=== PATIENT | female | born 1970 | race Caucasian/White ===

== ENCOUNTER 2021-04-28 19:31 | Emergency (ER) | payer OTHER, SELFPAY ==
[2021-04-28 19:44] VITALS: BP 142/91; PULSE 75; RESP 18; TEMP 36.8; O2SAT 99; BMI 29.9
--- NOTE | 2021-04-28 20:10 | ED.NAVMDI ---
HPI - Nausea/Vomiting/Diarrhea General Chief complaint: Abdominal Pain Stated complaint: vomiting Time Seen by Provider: 04/28/21 20:10 Source: patient Mode of arrival: ambulatory Limitations: no limitations History of Present Illness HPI Narrative: Patient been complaining of abdominal cramps nausea vomiting diarrhea since yesterday evening vomited about 4 times and had diarrhea about 7-8 times last few bowel movements had only bright red blood patient does have history of hemorrhoids had colonoscopy last year which was negative. No fever no chills denies any recent travel or sea food intake no fever or chills no use of antibiotics Related Data Home Medications Medication Instructions Recorded Confirmed oxycodone-acetaminophen 5 mg-325 1 tab PO Q6H PRN 07/09/20 10/08/20 mg tablet Previous Rx's Medication Instructions Recorded cetirizine 10 mg tablet (Zyrtec) 10 mg PO DAILY PRN 20 Days #20 tab 07/09/20 triamcinolone acetonide 0.1 % 1 appl TOPICAL BID 15 Days #15 g 07/09/20 topical cream ubrogepant 50 mg tablet (Ubrelvy) 50 mg PO ONCE PRN 30 Days #10 tab 10/08/20 topiramate 25 mg tablet 50 mg PO BEDTIME #180 tab 03/10/21 ondansetron 4 mg disintegrating 4 mg PO Q8H PRN #9 tab 03/21/21 tablet hydrocortisone acetate 25 mg 25 mg ID BID #12 ea 04/28/21 rectal suppository (Anusol-HC) Allergies Allergy/AdvReac Type Severity Reaction Status Date / Time No Known Allergies Allergy Verified 04/28/21 19:44 [No Known Allergies*] Review of Systems Review of Systems: Yes all other systems are reviewed and are negative [facility] Past Medical History Medical History Elevated LFTs Hypertriglyceridemia Migraine Normal colonoscopy (~11/21/19) Overweight (BMI 25.0-29.9) Rash Smoker Surgical History History of D&C Family History Family History Father No problems noted. Mother Hypertension Dementia Social History Social History Alcohol intake: current Alcohol intake frequency: holidays/special occasions only Advance Directives: No Advance Directives Information Provided: Yes Patient : No Physical Exam Vital Signs: Vital Signs: Last Vital Signs Temp 97.6 F 04/28/21 20:12 Pulse 76 04/28/21 20:12 Resp 14 04/28/21 20:12 BP 169/101 H 04/28/21 20:12 Pulse Ox 99 04/28/21 20:12 Body Mass Index 29.9 Appearance: Alert. Oriented X3. No acute distress. Eyes: No pallor or icterus ENT: Pharynx normal. Oral Mucosa moist Neck: Normal inspection. Neck supple. CVS: Normal heart rate and rhythm. Pulses normal. Respiratory: No respiratory distress. Equal air entry bilateral, no wheezing/rales/rhonchi Abdomen: Soft and nontender. Bowel sounds are present, no mass palpable, no CVA tenderness Skin: Skin warm and dry. Normal skin color. Normal skin turgor. Extremities: No lower extremity edema. No calf tenderness Neuro: Oriented X 3. No motor deficit. MDM - Nausea/Vomiting/Diarrhea MDM Narrative Medical decision making narrative: Patient' with history of hemorrhoids status post surgery comes with nausea vomiting diarrhea which is getting better labs are stable discharge patient home Lab Data Attestation: I reviewed the patient's lab results. Result diagrams: 04/28/21 21:36 04/28/21 21:36 Labs: Lab Results 04/28/21 04/28/21 04/28/21 Range/Units 20:18 21:36 21:36 WBC 8.8 (4.8-10.8) X10*3/uL RBC 3.63 L (4.20-5.50) X10*6/uL Hgb 12.6 (12.0-16.0) g/dl Hct 36.6 L (37.0-47.0) % MCV 100.8 H (80.0-98.0) fL MCH 34.7 H (27.0-33.0) pg MCHC 34.4 (31.0-35.0) g/dl RDW 12.4 (11.0-16.0) % Plt Count 214 (160-400) X10*3/uL MPV 10.2 (9.4-12.3) fL Immature Gran % (Auto) 0.2 (0.0-0.4) % Neut % (Auto) 72.6 (45-73) % Lymph % (Auto) 18.6 L (20-40) % [place] % (Auto) 7.5 (2-11) % Eos % (Auto) 0.9 (0-4) % Baso % (Auto) 0.2 (0-2) % Lymph # (Auto) 1.6 (1.2-4.9) X10*3/uL [place] # (Auto) 0.7 (0.1-1.2) X10*3/uL Eos # (Auto) 0.1 (0.0-0.4) X10*3/uL Baso # (Auto) 0.0 (0.0-0.2) X10*3/uL Abs Immat Gran (auto) 0.02 (0.00-0.03) X10*3/uL Absolute Neuts (auto) 6.4 (2.0-8.3) x10*3/uL Absolute Nucleated RBC 0.000 (0.0-0.012) X10*3/uL Nucleated RBC % (auto) 0.0 (0.0-0.2) /100WBC Sodium 138 (135-145) mmol/L Potassium 3.6 (3.3-5.1) mmol/L Chloride 104 (96-108) mmol/L Carbon Dioxide 27 (22-29) mmol/L Anion Gap 11 L (12-20) BUN 12 (9-16) mg/dL Creatinine 0.63 (0.5-1.4) mg/dL Estim Creat Clear Calc 114.0 Estimated GFR > 60 Random Glucose 93 (60-115) mg/dL Calcium 8.8 (8.4-10.2) mg/dL Total Bilirubin 0.6 (0.0-1.0) mg/dL AST 20 (5-31) U/L ALT 24 (0-31) U/L Alkaline Phosphatase 59 (39-117) U/L Total Protein 5.2 L (6.5-8.0) g/dL Albumin 3.5 (3.5-5.0) g/dL Lipase 87 H (8-78) U/L Urine Color YELLOW Urine Appearance CLEAR Urine pH 6.0 (5.0-8.0) Ur Specific [place] <= 1.005 (1.005-1.025) Urine Protein NEG (NEG-TRACE) MG/DL Urine Glucose (UA) NEG (NEG) MG/DL Urine Ketones 5 (NEG) MG/DL Urine Blood 1+ H (NEG) Urine Nitrite NEG (NEG) Ur Leukocyte Esterase NEG (NEG) Urine RBC 0-2 (0) /HPF Urine WBC 0 (0-4) /HPF Ur Squamous Epith Cells 1+ /LPF Urine Bacteria TRACE /LPF Discharge Plan Discharge Clinical Impression: Gastroenteritis, Bleeding hemorrhoid Patient Disposition: Home, Self-Care Instructions: Hemorrhoids (ED), Enteritis (ED) Additional Instructions: Drink plenty of fluids Avoid straining Suppository for hemorrhoids Follow-up with surgeon if bleeding continues Prescriptions: New hydrocortisone acetate [Anusol-HC] 25 mg suppository 25 mg ID BID Qty: 12 RF: 0 No Action topiramate 25 mg tablet 50 mg PO BEDTIME Qty: 180 RF: 1 ondansetron 4 mg tablet,disintegrating 4 mg PO Q8H PRN (Reason: for nausea/vomiting) Qty: 9 RF: 6 Ubrelvy 50 mg tablet 50 mg PO ONCE PRN (Reason: migraine headache) 30 Days Qty: 10 RF: 5 oxycodone-acetaminophen 5-325 mg tablet 1 tab PO Q6H PRN (Reason: pain) RF: 0 triamcinolone acetonide 0.1 % cream 1 appl topical BID 15 Days Qty: 15 RF: 0 cetirizine [Zyrtec] 10 mg tablet 10 mg PO DAILY PRN (Reason: allergy symptoms) 20 Days Qty: 20 RF: 0
[2021-04-28 20:12] VITALS: BP 169/101; PULSE 76; RESP 14; TEMP 36.4; O2SAT 99
[2021-04-28 20:28] LABS: Appearance Urine CLEAR; Color Urine YELLOW; Glucose Urine UA NEG (NEG); Leukocyte Esterase Urine NEG (NEG); Nitrite Urine NEG (NEG); Specific Gravity - Urine <= 1.005 (1.005-1.025); Urine Blood 1+ (NEG); Urine Ketones 5 MG/DL (NEG); Urine Protein NEG (NEG-TRACE)
[2021-04-28 20:37] LABS: Bacteria Urine TRACE /LPF; RBC Urine 0-2 /HPF (0); Squamous Epithelial Cell Urine 1+ /LPF; WBC Urine 0 /HPF (0-4)
[2021-04-28] MEDS: Ondansetron ODT 4 MG TAB.RAPDIS TRANSLINGU (20:42)
[2021-04-28] MEDS: Dicyclomine HCl 10 MG CAPSULE 20 MG PO (20:42)
[2021-04-28 21:51] LABS: MANUAL DIFF FLAG NO
[2021-04-28 21:54] LABS: Basophils Percent Auto 0.2 % (0-2); Eosinophils Absolute Auto 0.1 X10*3/uL (0.0-0.4); Eosinophils Percent Auto 0.9 % (0-4); Hematocrit 36.6 % (37.0-47.0); Hemoglobin 12.6 g/dl (12.0-16.0); Imm Gran Abs Auto 0.02 X10*3/uL (0.00-0.03); Imm Gran Pct Auto 0.2 % (0.0-0.4); Lymphocytes Absolute Auto 1.6 X10*3/uL (1.2-4.9); Lymphocytes Percent Auto 18.6 % (20-40); Mean Corpuscular HGB Conc 34.4 g/dl (31.0-35.0); Mean Corpuscular Hemoglobin 34.7 pg (27.0-33.0); Mean Corpuscular Volume 100.8 fL (80.0-98.0); Mean Platelet Volume 10.2 fL (9.4-12.3); Monocytes Absolute Auto 0.7 X10*3/uL (0.1-1.2); Monocytes Percent Auto 7.5 % (2-11); Neutrophils Absolute Auto 6.4 x10*3/uL (2.0-8.3); Neutrophils Percent Auto 72.6 % (45-73); Platelet Count 214 X10*3/uL (160-400); Red Blood Count 3.63 X10*6/uL (4.20-5.50); Red Cell Distribution Width 12.4 % (11.0-16.0); White Blood Count 8.8 X10*3/uL (4.8-10.8)
[2021-04-28 22:10] LABS: Alanine Aminotransferase 24 U/L (0-31); Albumin Level 3.5 g/dL (3.5-5.0); Alkaline Phosphatase 59 U/L (39-117); Anion Gap 11 (12-20); Aspartate Amino Transferase 20 U/L (5-31); Bilirubin Total 0.6 mg/dL (0.0-1.0); Blood Urea Nitrogen 12 mg/dL (9-16); Calcium 8.8 mg/dL (8.4-10.2); Carbon Dioxide 27 mmol/L (22-29); Chloride 104 mmol/L (96-108); Estimated Glomerular Filt Rate > 60; Glucose Random 93 mg/dL (60-115); Lipase 87 U/L (8-78); Potassium 3.6 mmol/L (3.3-5.1); Sodium 138 mmol/L (135-145); Total Protein 5.2 g/dL (6.5-8.0)
== END 2021-04-28 22:23 | disposition home or self-care (01) ==
PROVIDERS: Emergency Provider Internal Medicine; PCP Internal Medicine
DX: K52.9 Noninfective gastroenteritis and colitis, unspecified (principal); K64.9 Unspecified hemorrhoids
CPT/HCPCS: 36415; 80053; 81001; 83690; 85025; 99283

== ENCOUNTER 2021-05-30 06:07 | Outpatient (REF) | payer OTHER, SELFPAY ==
[2021-05-30 06:23] LABS: MANUAL DIFF FLAG NO
[2021-05-30 07:19] LABS: Basophils Percent Auto 0.6 % (0-2); Eosinophils Absolute Auto 0.1 X10*3/uL (0.0-0.4); Eosinophils Percent Auto 2.1 % (0-4); Hemoglobin 13.2 g/dl (12.0-16.0); Imm Gran Abs Auto 0.01 X10*3/uL (0.00-0.03); Imm Gran Pct Auto 0.2 % (0.0-0.4); Lymphocytes Absolute Auto 2.4 X10*3/uL (1.2-4.9); Lymphocytes Percent Auto 38.4 % (20-40); Mean Corpuscular HGB Conc 33.8 g/dl (31.0-35.0); Mean Corpuscular Hemoglobin 33.9 pg (27.0-33.0); Mean Corpuscular Volume 100.3 fL (80.0-98.0); Mean Platelet Volume 10.5 fL (9.4-12.3); Monocytes Absolute Auto 0.5 X10*3/uL (0.1-1.2); Monocytes Percent Auto 7.5 % (2-11); Neutrophils Absolute Auto 3.2 x10*3/uL (2.0-8.3); Neutrophils Percent Auto 51.2 % (45-73); Platelet Count 270 X10*3/uL (160-400); Red Blood Count 3.89 X10*6/uL (4.20-5.50); Red Cell Distribution Width 12.1 % (11.0-16.0); White Blood Count 6.2 X10*3/uL (4.8-10.8)
[2021-05-30 07:43] LABS: Alanine Aminotransferase 41 U/L (0-31); Albumin Level 3.7 g/dL (3.5-5.0); Alkaline Phosphatase 87 U/L (39-117); Anion Gap 12 (12-20); Aspartate Amino Transferase 38 U/L (5-31); Bilirubin Total 0.3 mg/dL (0.0-1.0); Blood Urea Nitrogen 21 mg/dL (9-16); Carbon Dioxide 25 mmol/L (22-29); Chloride 107 mmol/L (96-108); Cholesterol 201 mg/dL; Estimated Glomerular Filt Rate > 60; Glucose Fasting 87 mg/dL (60-99); HDL Cholesterol 46 mg/dL; LDL Cholesterol Calculated 116 mg/dl; Potassium 4.5 mmol/L (3.3-5.1); Sodium 139 mmol/L (135-145); Total Protein 5.8 g/dL (6.5-8.0); Triglycerides 195 mg/dL
[2021-05-30 08:03] LABS: TSH reflex Free T4 1.83 uIU/mL (0.32-4.0)
[2021-05-30 08:38] LABS: Appearance Urine CLEAR; Color Urine YELLOW; Glucose Urine UA NEG (NEG); Leukocyte Esterase Urine NEG (NEG); Nitrite Urine NEG (NEG); UACC Culture Trigger NO; Urine Blood TRACE (NEG); Urine Ketones NEG (NEG); Urine Protein NEG (NEG-TRACE)
[2021-05-30 08:49] LABS: Bacteria Urine TRACE /LPF; Squamous Epithelial Cell Urine 1+ /LPF
[2021-05-30 08:50] LABS: RBC Urine 0 /HPF (0); WBC Urine 0-2 /HPF (0-4)
== END 2021-05-30 06:08 | disposition home or self-care (01) ==
LOC: HO.LAB 06:07
PROVIDERS: PCP Internal Medicine; Visit Provider Internal Medicine
DX: Z00.00 Encounter for general adult medical examination without abnormal findings (principal)
CPT/HCPCS: 36415; 80053; 80061; 81001; 84443; 85025

== ENCOUNTER 2021-07-01 11:42 | Outpatient (REF) | payer OTHER, SELFPAY ==
--- NOTE | ~2021-07-01 | XR_ITS ---
EXAMINATION: LEFT FEMUR AND LEFT KNEE X-RAY CLINICAL INFORMATION: Pain COMPARISON: None TECHNIQUE: 2 views of the left femur and 4 views of the left knee FINDINGS: Left femur: Bone alignment is normal. No fracture or dislocation is seen. Joint spaces are normal. The soft tissues are normal. Left knee: Bone alignment is normal. No fracture or dislocation is seen. Joint spaces are normal. There is no joint effusion. XR/XR femur LT 2V IMPRESSION: Unremarkable exam.
--- NOTE | ~2021-07-01 | XR_ITS ---
EXAMINATION: LEFT FEMUR AND LEFT KNEE X-RAY CLINICAL INFORMATION: Pain COMPARISON: None TECHNIQUE: 2 views of the left femur and 4 views of the left knee FINDINGS: Left femur: Bone alignment is normal. No fracture or dislocation is seen. Joint spaces are normal. The soft tissues are normal. Left knee: Bone alignment is normal. No fracture or dislocation is seen. Joint spaces are normal. There is no joint effusion. XR/XR knee LT 4V IMPRESSION: Unremarkable exam.
== END 2021-07-01 11:43 | disposition home or self-care (01) ==
LOC: HO.XRAY 11:42
PROVIDERS: PCP Internal Medicine; Visit Provider Nurse Practitioner Family
DX: M25.562 Pain in left knee (principal); M79.605 Pain in left leg
CPT/HCPCS: 73552; 73564

== ENCOUNTER 2021-12-03 08:51 | Outpatient (REF) | payer OTHER, SELFPAY ==
[2021-12-03 11:38] LABS: Alanine Aminotransferase 41 U/L (0-31); Albumin Level 4.2 g/dL (3.5-5.0); Anion Gap 15 (12-20); Aspartate Amino Transferase 34 U/L (5-31); Bilirubin Total 0.6 mg/dL (0.0-1.0); Blood Urea Nitrogen 11 mg/dL (9-16); Calcium 9.1 mg/dL (8.4-10.2); Carbon Dioxide 24 mmol/L (22-29); Chloride 103 mmol/L (96-108); Cholesterol 206 mg/dL; Estimated Glomerular Filt Rate > 60; Glucose Fasting 91 mg/dL (60-99); HDL Cholesterol 64 mg/dL; LDL Cholesterol Calculated 128 mg/dl; Potassium 3.9 mmol/L (3.3-5.1); Sodium 138 mmol/L (135-145); Total Protein 6.5 g/dL (6.5-8.0); Triglycerides 71 mg/dL
[2021-12-03 11:46] LABS: Alkaline Phosphatase 81 U/L (39-117)
[2021-12-03 11:54] LABS: Vitamin D 25-OH Total 39.5 ng/mL (>30)
== END 2021-12-03 08:52 | disposition home or self-care (01) ==
LOC: HO.HMGCLDS 08:51
PROVIDERS: PCP Internal Medicine; Visit Provider Internal Medicine
DX: E78.00 Pure hypercholesterolemia, unspecified (principal); E55.9 Vitamin D deficiency, unspecified
CPT/HCPCS: 36415; 80053; 80061; 82306

== ENCOUNTER 2022-06-13 07:44 | Outpatient (REF) | payer OTHER, SELFPAY ==
[2022-06-13 11:11] LABS: MANUAL DIFF FLAG NO
[2022-06-13 11:21] LABS: Appearance Urine Clear; Color Urine Yellow; Glucose Urine UA Negative (Negative); Leukocyte Esterase Urine Negative (Negative); Nitrite Urine Negative (Negative); Specific Gravity - Urine 1.015 (1.005-1.025); Urine Blood Negative (Negative); Urine Ketones Negative (Negative); Urine Protein Negative (Neg-Trace)
[2022-06-13 11:27] LABS: Basophils Percent Auto 0.5 % (0-2); Eosinophils Absolute Auto 0.1 X10*3/uL (0.0-0.4); Eosinophils Percent Auto 1.4 % (0-4); Hematocrit 39.8 % (37.0-47.0); Hemoglobin 13.5 g/dl (12.0-16.0); Imm Gran Abs Auto 0.02 X10*3/uL (0.00-0.03); Imm Gran Pct Auto 0.3 % (0.0-0.4); Lymphocytes Absolute Auto 1.9 X10*3/uL (1.2-4.9); Lymphocytes Percent Auto 32.8 % (20-40); Mean Corpuscular HGB Conc 33.9 g/dl (31.0-35.0); Mean Corpuscular Hemoglobin 34.7 pg (27.0-33.0); Mean Corpuscular Volume 102.3 fL (80.0-98.0); Mean Platelet Volume 10.8 fL (9.4-12.3); Monocytes Absolute Auto 0.5 X10*3/uL (0.1-1.2); Monocytes Percent Auto 8.2 % (2-11); Neutrophils Absolute Auto 3.3 x10*3/uL (2.0-8.3); Neutrophils Percent Auto 56.8 % (45-73); Platelet Count 237 X10*3/uL (160-400); Red Blood Count 3.89 X10*6/uL (4.20-5.50); Red Cell Distribution Width 12.3 % (11.0-16.0); White Blood Count 5.7 X10*3/uL (4.8-10.8)
[2022-06-13 12:50] LABS: Alanine Aminotransferase 37 U/L (0-31); Albumin Level 4.1 g/dL (3.5-5.0); Alkaline Phosphatase 85 U/L (39-117); Anion Gap 12 (12-20); Aspartate Amino Transferase 32 U/L (5-31); Bilirubin Total 0.6 mg/dL (0.0-1.0); Blood Urea Nitrogen 18 mg/dL (9-16); Calcium 9.2 mg/dL (8.4-10.2); Carbon Dioxide 28 mmol/L (22-29); Chloride 103 mmol/L (96-108); Cholesterol 217 mg/dL; Estimated Glomerular Filt Rate > 60; Glucose Fasting 91 mg/dL (60-99); HDL Cholesterol 75 mg/dL; LDL Cholesterol Calculated 121 mg/dl; Potassium 4.2 mmol/L (3.3-5.1); Sodium 139 mmol/L (135-145); Total Protein 6.2 g/dL (6.5-8.0); Triglycerides 106 mg/dL; Vitamin D 25-OH Total 50.8 ng/mL (>30)
== END 2022-06-13 07:45 | disposition home or self-care (01) ==
LOC: HO.HMGCLDS 07:44
PROVIDERS: PCP Internal Medicine; Visit Provider Internal Medicine
DX: I10 Essential (primary) hypertension (principal); E78.00 Pure hypercholesterolemia, unspecified; E55.9 Vitamin D deficiency, unspecified
CPT/HCPCS: 36415; 80053; 80061; 81003; 82306; 84443; 85025

== ENCOUNTER 2022-12-11 07:44 | Outpatient (REF) | payer OTHER, SELFPAY ==
[2022-12-11 11:11] LABS: Appearance Urine Clear; Color Urine Yellow; Glucose Urine UA Negative (Negative); Leukocyte Esterase Urine Trace (Negative); Nitrite Urine Negative (Negative); PH 5.5 (5.0-9.0); UMIC TRIGGER UACC YES; Urine Blood Negative (Negative); Urine Ketones Negative (Negative); Urine Protein Negative (Neg-Trace)
[2022-12-11 11:14] LABS: Bacteria Urine None Seen (None Seen); Hyaline Casts Urine 0-2 /LPF (0-2); RBC Urine 0-2 /HPF (0-2); Squamous Epithelial Cell Urine 0-2 /HPF (0-2); WBC Urine 0-5 /HPF (0-5)
[2022-12-11 11:19] LABS: MANUAL DIFF FLAG NO
[2022-12-11 11:38] LABS: Basophils Percent Auto 0.6 % (0-2); Eosinophils Absolute Auto 0.1 X10*3/uL (0.0-0.4); Eosinophils Percent Auto 0.7 % (0-4); Hematocrit 41.6 % (37.0-47.0); Hemoglobin 14.1 g/dl (12.0-16.0); Imm Gran Abs Auto 0.03 X10*3/uL (0.00-0.03); Imm Gran Pct Auto 0.4 % (0.0-0.4); Lymphocytes Absolute Auto 1.8 X10*3/uL (1.2-4.9); Lymphocytes Percent Auto 26.5 % (20-40); Mean Corpuscular HGB Conc 33.9 g/dl (31.0-35.0); Mean Corpuscular Hemoglobin 33.9 pg (27.0-33.0); Mean Platelet Volume 10.1 fL (9.4-12.3); Monocytes Absolute Auto 0.5 X10*3/uL (0.1-1.2); Neutrophils Absolute Auto 4.4 x10*3/uL (2.0-8.3); Neutrophils Percent Auto 64.8 % (45-73); Platelet Count 331 X10*3/uL (160-400); Red Blood Count 4.16 X10*6/uL (4.20-5.50); Red Cell Distribution Width 12.9 % (11.0-16.0); White Blood Count 6.8 X10*3/uL (4.8-10.8)
[2022-12-11 12:42] LABS: Alanine Aminotransferase 69 U/L (0-31); Alkaline Phosphatase 99 U/L (39-117); Anion Gap 13 (12-20); Aspartate Amino Transferase 41 U/L (5-31); Bilirubin Total 0.5 mg/dL (0.0-1.0); Blood Urea Nitrogen 21 mg/dL (9-16); Calcium 9.5 mg/dL (8.4-10.2); Carbon Dioxide 27 mmol/L (22-29); Chloride 104 mmol/L (96-108); Cholesterol 184 mg/dL; Estimated Glomerular Filt Rate > 60; Glucose Fasting 91 mg/dL (60-99); HDL Cholesterol 61 mg/dL; LDL Cholesterol Calculated 110 mg/dl; Potassium 4.2 mmol/L (3.3-5.1); Sodium 140 mmol/L (135-145); Total Protein 6.6 g/dL (6.5-8.0); Triglycerides 65 mg/dL
[2022-12-11 13:01] LABS: TSH reflex Free T4 1.45 uIU/mL (0.32-4.0); Vitamin D 25-OH Total 95.9 ng/mL (>30)
== END 2022-12-11 07:45 | disposition home or self-care (01) ==
LOC: HO.HMGCLDS 07:44
PROVIDERS: PCP Internal Medicine; Visit Provider Internal Medicine
DX: I10 Essential (primary) hypertension (principal); E55.9 Vitamin D deficiency, unspecified; E78.00 Pure hypercholesterolemia, unspecified
CPT/HCPCS: 36415; 80053; 80061; 81001; 82306; 84443; 85025

== ENCOUNTER 2023-01-03 11:04 | Outpatient (REF) | payer OTHER, SELFPAY ==
--- NOTE | ~2023-01-03 | US_ITS ---
EXAMINATION: US SOFT TISSUE HEAD/NECK CLINICAL INFORMATION: Unspecified cyst of jaw. Palpable and tender cyst on left side of the face/maxillary area. Cyst has been present for years but is now becoming painful. Rule out salivary gland cyst versus mucous cyst versus lymph node. COMPARISON: None available. TECHNIQUE: Linear transducer grayscale and color Doppler examination of the left face/maxillary area between the edge of lip and ear with right side for comparison. FINDINGS: The painful area/lump indicated by the patient corresponds to a slightly more prominent parotid (accessory) gland on the left compared to the right. Difference in size of doubtful clinical significance. No cystic structures or obvious abnormalities are seen in the cheek. US/US soft tiss head and/or neck IMPRESSION: The painful area/lump indicated by the patient corresponds to a slightly more prominent parotid (accessory) gland on the left compared to the right. Difference in size is of doubtful clinical significance.
== END 2023-01-03 11:05 | disposition home or self-care (01) ==
LOC: HO.HMGCX 11:04
PROVIDERS: PCP Internal Medicine; Visit Provider Internal Medicine
DX: M27.40 Unspecified cyst of jaw (principal)
CPT/HCPCS: 76536

== ENCOUNTER 2023-10-26 07:56 | Outpatient (REF) | payer OTHER, SELFPAY ==
[2023-10-26 10:26] LABS: MANUAL DIFF FLAG NO
[2023-10-26 10:35] LABS: Appearance Urine Clear; Color Urine Yellow; Glucose Urine UA Negative (Negative); Leukocyte Esterase Urine Negative (Negative); Nitrite Urine Negative (Negative); PH 6.5 (5.0-9.0); Specific Gravity - Urine <= 1.005 (1.005-1.025); Urine Blood Negative (Negative); Urine Ketones Negative (Negative); Urine Protein Negative (Neg-Trace)
[2023-10-26 10:52] LABS: Basophils Percent Auto 0.7 % (0-2); Eosinophils Absolute Auto 0.1 X10*3/uL (0.0-0.4); Eosinophils Percent Auto 1.1 % (0-4); Hematocrit 39.3 % (37.0-47.0); Hemoglobin 13.5 g/dl (12.0-16.0); Imm Gran Abs Auto 0.01 X10*3/uL (0.00-0.03); Imm Gran Pct Auto 0.2 % (0.0-0.4); Lymphocytes Absolute Auto 1.6 X10*3/uL (1.2-4.9); Lymphocytes Percent Auto 29.2 % (20-40); Mean Corpuscular HGB Conc 34.4 g/dl (31.0-35.0); Mean Corpuscular Hemoglobin 34.3 pg (27.0-33.0); Mean Corpuscular Volume 99.7 fL (80.0-98.0); Mean Platelet Volume 10.7 fL (9.4-12.3); Monocytes Absolute Auto 0.4 X10*3/uL (0.1-1.2); Monocytes Percent Auto 7.1 % (2-11); Neutrophils Absolute Auto 3.3 x10*3/uL (2.0-8.3); Neutrophils Percent Auto 61.7 % (45-73); Platelet Count 236 X10*3/uL (160-400); Red Blood Count 3.94 X10*6/uL (4.20-5.50); Red Cell Distribution Width 12.7 % (11.0-16.0); White Blood Count 5.3 X10*3/uL (4.8-10.8)
[2023-10-26 11:18] LABS: Alanine Aminotransferase 31 U/L (0-31); Albumin Level 4.2 g/dL (3.5-5.0); Alkaline Phosphatase 101 U/L (39-117); Anion Gap 13 (12-20); Aspartate Amino Transferase 28 U/L (5-31); Bilirubin Total 0.5 mg/dL (0.0-1.0); Blood Urea Nitrogen 17 mg/dL (9-16); Calcium 9.6 mg/dL (8.4-10.2); Carbon Dioxide 26 mmol/L (22-29); Chloride 106 mmol/L (96-108); Cholesterol 196 mg/dL (<200); Estimated Glomerular Filt Rate > 60; Glucose Fasting 94 mg/dL (60-99); HDL Cholesterol 66 mg/dL (>40); LDL Cholesterol Calculated 116 mg/dL (<100); Sodium 141 mmol/L (135-145); Total Protein 6.7 g/dL (6.5-8.0); Triglycerides 70 mg/dL (<150)
[2023-10-26 11:20] LABS: TSH reflex Free T4 1.54 uIU/mL (0.32-4.0); Vitamin D 25-OH Total 69.5 ng/mL (>30)
== END 2023-10-26 07:57 | disposition home or self-care (01) ==
LOC: HO.HMGCLDS 07:56
PROVIDERS: PCP Internal Medicine; Visit Provider Internal Medicine
DX: E78.00 Pure hypercholesterolemia, unspecified (principal); R30.0 Dysuria; E55.9 Vitamin D deficiency, unspecified; I10 Essential (primary) hypertension
CPT/HCPCS: 36415; 80053; 80061; 81003; 82306; 84443; 85025

== ENCOUNTER 2023-10-30 16:41 | Outpatient (AMB) | payer OTHER, SELFPAY ==
[2023-10-30 16:49] VITALS: BP 142/96; PULSE 92; O2SAT 96; BMI 30.4
--- NOTE | 2023-10-30 16:49 | MHC.PC.OV ---
Vital Signs 10/30/23 16:49 Height 5 ft 5 in Weight 183 lb BMI 30.4 BP 142/96 H Blood Pressure Location Lt brachial Position Sitting Pulse 92 Pulse Source Pulse Oximeter Pulse Oximetry (%) 96 Oxygen Delivery Method Room Air Intake Visit Reasons: PE Anthropology Faculty Member Required: No Military Professional: Not Required per policy Accompanied by: Self / Same As Patient Allergies No Known Allergies [No Known Allergies*] Allergy (Verified 10/30/23 17:40) Medication List - Last Reconciled 10/30/23 by Sami Peterson MD cetirizine (Zyrtec) 10 mg PO DAILY PRN 20 days diclofenac sodium 1% (Voltaren Arthritis Pain) 2 grams topical QID hydrocortisone acetate (Anusol-HC) 25 mg NM BID metronidazole 0.75% 1 appl topical DAILY nabumetone 500 mg PO BID ondansetron 4 mg PO Q8H PRN oxycodone-acetaminophen 5-325 mg (Percocet) 1 tab PO Q6H PRN 28 days topiramate 50 mg (2 x 25 mg) PO BEDTIME triamcinolone acetonide 0.1% 1 appl topical BID 15 days Tobacco use date assessed: 10/30/23 Dental Screening Dental Screen Date: 10/30/23 Did you have a dental visit in the last 12 months?: Yes Did you have a dental problem in the last 6 months where you did not have access to dental care?: No Was dental information given to patient?: Patient has dentist HPI PE HPI Details Patient comes in today for her annual physical examination States that she is still under a lot of stress due to her parents' declining health and mental conditions and is struggling with deciding whether to sign up her father for hospice States that she feels okay otherwise except for increasing right shoulder pain Recalls injuring her right shoulder many years ago and at one point she was advised to undergo arthroscopic surgery by orthopedics but she did not go ahead with the procedure due to some concerns States that her right shoulder has been frequently bothering her since and notes that she has been experiencing increased pain in her right shoulder lately States that her headaches have been well controlled lately on her current Rx; denies any dizziness She denies any chest pains, no shortness of breath No nausea/ vomiting, no abdominal pain No change in bowel habits noted She denies any acute urinary symptoms Had her follow-up labs done a few days ago - to discuss her results Her annual mammogram was last done just this past month at [facility] in [place] She last had her gynecology exam and pap smear done earlier this year in June or July 2023 also in [place] but states that 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 Bruce - was recommended to get a repeat colonoscopy in 10 yrs (2029) [facility] Medical History (Updated 10/31/23 @ 05:37 by Sami Peterson MD) Obesity (BMI 30-39.9) Rash Elevated LFTs Hypertriglyceridemia Overweight (BMI 25.0-29.9) Smoker Normal colonoscopy (~11/21/19) Migraine Surgical History History of colonoscopy (~11/21/19) History of D&C Family History Father No problems noted. Mother Hypertension Dementia Other Mental health problem Social History Housing: House Alcohol intake: current Alcohol intake frequency: holidays/special occasions only Patient Tobacco Use Status: Current someday Tobacco user e-Cigarette/Vaping Use: Never Used Second Hand Smoke Exposure: Yes service: No Current occupational status: employed Cognitive needs: No Hearing needs: No Vision needs: No Questionnaire PHQ-9 Over the last 2 weeks, how often have you been bothered by any of the following problems? 1. Little interest or pleasure in doing things: not at all 2. Feeling down, depressed, or hopeless: not at all 3. Trouble falling or staying asleep, or sleeping too much: not at all 4. Feeling tired or having little energy: not at all 5. Poor appetite or overeating: not at all 6. Feeling bad about yourself - or that you are a failure or have let yourself or your family down: not at all 7. Trouble concentrating on things, such as reading the newspaper or watching television: not at all 8. Moving or speaking so slowly that other people could have noticed. Or the opposite - being so fidgety or restless that you have been moving around a lot more than usual: not at all 9. Thoughts that you would be better off or of hurting yourself in some way: not at all Total score: 0 Depression Screening Interpretation: Negative Depression Screening Done: Yes 30637 - PHQ-9 Billing: Yes Source: Developed by Drs. Jabari Antonio, Barbara Lim, Parish Jeffrey and colleagues, with an educational richie from [employer]. Thrive Questionnaire Date Thrive assessed: 10/30/23 I am a: Patient What is your living situation today?: I have a steady place to live Within the past 12 months, did the food you bought not last and you didn't have the money to get more?: Never true Within the past 12 months, did you worry whether your food would run out before you got money to buy more?: Never true Do you have trouble paying for medicines?: No Do you have trouble getting transportation to medical appointments?: No Do you have trouble paying your heating and electricity bill?: No Do you have trouble taking care of your child, family member or friend?: No Do you have trouble with day-to-day activities such as bathing, preparing meals, shopping, managing finances, etc.?: No Are you currently unemployed and looking for a job?: No Are you interested in more education?: No Please select the resources that you would like help with: None Currently or been in a relationship where the following occur: no concerns reported THRIVE Score: 0 AUDIT C Alcohol Use Questionnaire (AUDIT-C) 1. How often do you have a drink containing alcohol?: Monthly or less 2. How many drinks containing alcohol do you have on a typical day when you are drinking?: 1 or 2 3. How often do you have six or more drinks on one occasion?: Never Total Score: 1 Score Reviewed/Action Taken: Yes KARYN-7 AMB Questionnaire KARYN-7 Date KARYN - 7 assessed: 10/30/23 Feeling nervous, anxious, or on edge: 0 = Not at all Not being able to stop or control worryin = Not at all Worrying too much about different things: 0 = Not at all Trouble relaxin = Not at all Being so restless that it is hard to sit still: 0 = Not at all Becoming easily annoyed or irritable: 0 = Not at all Feeling afraid as if something awful might happen: 0 = Not at all Total KARYN-7 score (0-4 normal; 5-9 mild; 10-14 moderate; 15-21 severe): 0 Source: Developed by Drs. Jabari Antonio, Barbara Lim, Parish Jeffrey and colleagues, with an educational richie from [employer]. Review of Systems Const Denies chills, Denies fatigue, Denies fever(s), Denies headache(s) and Denies malaise Eyes Denies blurry vision, Denies change in vision, Denies irritation and Denies itchy eyes ENT Denies dysphagia, Denies dizziness, Denies otalgia, Denies headache(s), Denies nasal congestion, Denies neck pain, Denies odynophagia, Denies sinus pain and Denies sore throat Card Denies chest pain, Denies rapid heart rate, Denies irregular heart rhythm, Denies palpitations and Denies dyspnea Resp Denies chest congestion, Denies cough, Denies dyspnea and Denies wheezing GI Denies abdominal pain, Denies bloating, Denies constipation, Denies dysphagia, Denies heartburn, Denies diarrhea, Denies nausea, Denies odynophagia and Denies vomiting Denies hematuria, Denies urinary frequency, Denies dysuria, Denies urinary incontinence and Denies urinary urgency Musc Denies back pain, Reports arthralgias (in the right shoulder - increasing lately), Denies joint swelling, Denies muscle weakness and Denies neck pain Skin/Breast Denies breast pain, Denies breast mass, Denies change in pigmentation, Denies lesions, Denies rash and Denies unusual bruising Neuro Denies dizziness, Denies headache(s) and Denies paresthesias Psych Reports anxiety and Denies depression Endo Denies fatigue and Denies palpitations Harsha/Lymph Denies easy bruising Aller/Immun Denies itchy eyes and Denies wheezing Physical exam (Primary Care) Vital Signs: Last Vital Signs Pulse 92 10/30/23 16:49 BP 142/96 H 10/30/23 16:49 Pulse Ox 96 10/30/23 16:49 Oxygen Delivery Method Room Air 10/30/23 16:49 BMI result Body Mass Index 30.4 Tobacco/Smoking Status: Tobacco use Status Tobacco use date assessed 10/30/23 10/30/23 16:50 Patient Tobacco Use Status Current someday Tobacco 10/30/23 16:50 e-Cigarette/Vaping Use Never Used 10/30/23 16:50 PHQ-9: PHQ-9 Score PHQ-9: Total score 0 10/30/23 17:44 Depression Screening Interpretation: Negative Thrive Assessment: Date of Thrive Assessment Date Thrive assessed 10/30/23 10/30/23 16:50 Currently or been in a relationship where the following occur: no concerns reported Const General: no acute distress, alert and awake Orientation/consciousness: patient oriented x3 HENMT Head: Yes normocephalic and Yes atraumatic Ears: external ears normal, TM's normal bilaterally and EAC's normal General nose exam: No nasal discharge present Face and sinus: Yes normal facial exam and Yes sinuses nontender Teeth and gingiva: dentition normal Throat: Yes posterior oropharynx normal and Yes tonsils normal (no TP congestion) Eyes Eyelids: Yes eyelids normal Conjunctivae: conjunctivae normal Pupils: Equal, round and reactive pupils present EOM: EOMs intact bilaterally Neck Neck: Yes no lymphadenopathy and Yes supple Thyroid: Thyroid normal Resp Auscultation: clear to auscultation bilaterally, no rales and no wheezes Cardio Rate: regular rate Rhythm: regular rhythm Heart sounds: no murmurs GI Palpation (GI): Soft to palpation, nontender and No hepatosplenomegaly present Auscultation: normal bowel sounds General: Yes no CVA tenderness Back/Spine/Pelvis Back: no CVA tenderness Thoracic/Lumbar Spine: thoracic and lumbar spine normal to inspection Skin Lesions: no lesions Rashes: no rashes Neuro General: patient oriented x3, moves all extremities, no focal motor deficits and CN's II-XI intact bilaterally Cranial nerves: Yes Equal, round and reactive pupils present Cognition (Neuro): normal cognition Gait exam (Neuro): Normal gait present Extrem General: Yes no clubbing, cyanosis or edema Right upper extremity: shoulder/upper arm Details: tenderness Location: of the A-C joint and of the scapula; no swelling Results Reviewed Results Reviewed: Laboratory Tests 10/26/23 10/26/23 08:02 08:10 WBC 5.3 Hgb 13.5 Hct 39.3 Plt Count 236 D Sodium 141 Potassium 4.0 Creatinine 0.71 Estimated GFR > 60 Fasting Glucose 94 Calcium 9.6 AST 28 ALT 31 Triglycerides 70 Cholesterol 196 LDL Cholesterol, Calc 116 H HDL Cholesterol 66 25-OH Vitamin D Total 69.5 TSH 1.54 Ur Specific [place] <= 1.005 Urine Protein Negative Urine Glucose (UA) Negative Urine Blood Negative Urine Nitrite Negative Ur Leukocyte Esterase Negative Assessment and Plan Assessment & Plan (1) Annual physical exam: Code(s): Z00.00 - Encounter for general adult medical examination without abnormal findings Plan: Results of her labs done a few days ago reviewed and discussed with patient She is up-to-date with all of her cancer screenings, including her colonoscopy, gynecology exam and annual mammogram (2) Chronic right shoulder pain: Code(s): M25.511 - Pain in right shoulder; G89.29 - Other chronic pain Plan: Will send patient for a repeat x-ray of her right shoulder for further evaluation Advised that she will likely require a referral to orthopedics but we will wait and see how her x-rays come out first (3) Hypertriglyceridemia: Code(s): E78.1 - Pure hyperglyceridemia Plan: She is advised that her cholesterol levels are within normal limits Reinforced low cholesterol diet She is again encouraged to try getting back to exercising regularly as soon as possible (4) Migraine: Code(s): G43.909 - Migraine, unspecified, not intractable, without status migrainosus Qualifiers: Intractability: not intractable Migraine type: with aura Status migrainosus presence: without status migrainosus Qualified Code(s): G43.109 - Migraine with aura, not intractable, without status migrainosus Plan: Controlled Continue Topiramate 50 mg Q HS for headache prophylaxis Continue Percocet 5-325 mg 1 tablet every 6 hours as needed for symptomatic relief of her severe headaches (5) Elevated LFTs: Code(s): R79.89 - Other specified abnormal findings of blood chemistry Plan: Patient is advised that her LFTs on her recent labs are now back to normal - were most likely related to her weight Will continue to monitor her LFTs regularly (6) Smoker: Code(s): F17.200 - Nicotine dependence, unspecified, uncomplicated Plan: Counseled again on smoking cessation (7) Obesity (BMI 30-39.9): Code(s): E66.9 - Obesity, unspecified Plan: Reinforced diet/exercise as tolerated/lose weight Plan Follow up in 6 months Orders: Orders XR shoulder RT min 2V 10/30/23 G89.29 - Other chronic pain, M25.511 - Pain in right shoulder Coding Level of Care Code Est Pt Prev Care >65y(33859) Diagnoses Annual physical exam Z00.00 Chronic right shoulder pain M25.511; G89.29 Hypertriglyceridemia E78.1 Migraine with aura and without status migrainosus, not intractable G43.109 Intractability: not intractable Migraine type: with aura Status migrainosus presence: without status migrainosus Elevated LFTs R79.89 Smoker F17.200 Obesity (BMI 30-39.9) E66.9
== END 2023-10-30 18:03 | disposition home or self-care (01) ==
PROVIDERS: PCP Internal Medicine; Visit Provider Internal Medicine
DX: Z00.00 Encounter for general adult medical examination without abnormal findings (principal); M25.511 Pain in right shoulder; E66.9 Obesity, unspecified; Z68.30 Body mass index [BMI] 30.0-30.9, adult; G89.29 Other chronic pain; E78.1 Pure hyperglyceridemia; G43.109 Migraine with aura, not intractable, without status migrainosus; R79.89 Other specified abnormal findings of blood chemistry; F17.210 Nicotine dependence, cigarettes, uncomplicated
CPT/HCPCS: 99396

== ENCOUNTER 2023-12-19 09:23 | Outpatient (AMB) | payer OTHER, SELFPAY ==
--- NOTE | 2023-12-19 09:28 | AM.OFFWIN_ITS ---
Intake Vital Signs 12/19/23 09:34 Weight 183 lb 8 oz BP not taken reason Patient Refused Respiration 16 Pulse 88 Pulse Source Pulse Oximeter Temp 98.1 F Temp Source Oral Pulse Oximetry (%) 95 Oxygen Delivery Method Room Air Intake Visit Reasons: est/ posion skyler? arms and legs Intake Note: patient here c/o poison skyler Patient Tobacco Use Status: Current someday Tobacco user Allergies No Known Allergies [No Known Allergies*] Allergy (Verified 12/19/23 09:48) Medication List - Last Reconciled 12/19/23 by STEFFEN Funes-TYRON cetirizine (Zyrtec) 10 mg PO DAILY PRN 20 days diclofenac sodium 1% (Voltaren Arthritis Pain) 2 grams topical QID hydrocortisone acetate (Anusol-HC) 25 mg PA BID nabumetone 500 mg PO BID ondansetron 4 mg PO Q8H PRN oxycodone-acetaminophen 5-325 mg (Percocet) 1 tab PO Q6H PRN 28 days topiramate 50 mg (2 x 25 mg) PO BEDTIME triamcinolone acetonide 0.1% 1 appl topical BID 15 days Do you need a note to return to daycare/school/sports/work: Yes HPI HPI Comments History of Present Illness Details Here today with complaints of a poison skyler rash. Reports that at the end of last week she was gardening. Initially she started with 1 bump on her left arm. She thought that it was a mosquito bite. However on Sunday she started with a rash (fluid-filled blisters) on the left arm, right arm. She has been using topical Benadryl and hydrocortisone without relief. This morning she woke up with the same rash on bilat thighs. Exam: Fluid-filled vesicles on left forearm, right forearm, right antecubital, bilat inner thighs consistent with a poison skyler dermatitis with out secondary infection Plan: Steroid taper Zyrtec 10 mg tab daily Vistaril as needed [facility] Medical History (Updated 12/19/23 @ 10:01 by STEFFEN Funes-TYRON) Obesity (BMI 30-39.9) Rash Elevated LFTs Hypertriglyceridemia Overweight (BMI 25.0-29.9) Smoker Normal colonoscopy (~11/21/19) Migraine Surgical History History of colonoscopy (~11/21/19) History of D&C Family History Father No problems noted. Mother Hypertension Dementia Other Mental health problem Social History Housing: House Alcohol intake: current Alcohol intake frequency: holidays/special occasions only Patient Tobacco Use Status: Current someday Tobacco user e-Cigarette/Vaping Use: Never Used Second Hand Smoke Exposure: Yes service: No Current occupational status: employed Cognitive needs: No Hearing needs: No Vision needs: No Physical Exam Vital Signs: Last Vital Signs Temp 98.1 F 12/19/23 09:34 Pulse 88 12/19/23 09:34 Resp 16 12/19/23 09:34 Pulse Ox 95 12/19/23 09:34 Oxygen Delivery Method Room Air 12/19/23 09:34 Assessment & Plan Assessment & Plan (1) Poison skyler: Code(s): L23.7 - Allergic contact dermatitis due to plants, except food Plan: , Medications: New prednisone 5 tabs x 2 days, 4 tabs x 2 days, 3 tabs x 2 days, 2 tabs x 2 days, 1 tab x 2 days and then STOP. 10 mg PO DIRECTED 10 days 30 tabs 0RF hydroxyzine pamoate (Vistaril) 25 mg PO TID PRN 30 caps 0RF itching cetirizine (Zyrtec) 10 mg PO DAILY 30 tabs 0RF Patient Instructions: Advised to take the medication daily with food. If new lesions crop up while on the taper advised to return to the office as we may need to hold the taper and/or extend the taper to prevent recurrence. Advised to cover the areas to prevent spread using something like a Tegaderm. Wash linen to also help prevent spread. Continue to use the [id number] skin scrubs to help protect the rest of your skin. Do your best to avoid contact. TECNU recommended OTC scrub Coding Level of Care Code Est Pt Level 3 (49425) Diagnoses Poison skyler L23.7
[2023-12-19 09:34] VITALS: PULSE 88; RESP 16; TEMP 36.7; O2SAT 95
== END 2023-12-19 09:59 | disposition home or self-care (01) ==
PROVIDERS: PCP Internal Medicine; Visit Provider Nurse Practitioner Family
DX: L23.7 Allergic contact dermatitis due to plants, except food (principal)
CPT/HCPCS: 99213

== ENCOUNTER 2024-01-10 10:01 | Outpatient (REF) | payer OTHER, SELFPAY ==
--- NOTE | ~2024-01-10 | XR_ITS ---
EXAMINATION: XR SHOULDER, RIGHT CLINICAL INFORMATION: Pain in right shoulder COMPARISON: None available. TECHNIQUE: 4 of the right shoulder. FINDINGS: Mild degenerative changes in the acromioclavicular joint with joint space narrowing and hypertrophic change. Glenohumeral alignment is preserved. Mild degenerative changes with hypertrophic change along the glenoid. Tiny calcification along the inferior aspect of the glenoid. XR/XR shoulder RT min 2V IMPRESSION: Mild degenerative changes. This study was presented today January 23, 2024 for interpretation. Stat results provided at this time as requested by referring provider.
== END 2024-01-10 10:02 | disposition home or self-care (01) ==
LOC: HO.HMGCX 10:01
PROVIDERS: PCP Internal Medicine; Visit Provider Internal Medicine
DX: M25.511 Pain in right shoulder (principal); G89.29 Other chronic pain
CPT/HCPCS: 73030

== ENCOUNTER 2024-04-28 12:24 | Outpatient (AMB) | payer OTHER, SELFPAY ==
[2024-04-28 12:34] VITALS: BP 134/80; PULSE 86; O2SAT 97; BMI 31.4
--- NOTE | 2024-04-28 12:34 | A.OFFPC_ITS ---
Vital Signs 04/28/24 12:34 Height 5 ft 5 in Weight 188 lb 8 oz BMI 31.4 BP 134/80 Blood Pressure Location Lt brachial Position Sitting Pulse 86 Pulse Source Pulse Oximeter Pulse Oximetry (%) 97 Oxygen Delivery Method Room Air Intake Visit Reasons: hyperlipidemia Protocol Officer Required: No Accompanied by: Self / Same As Patient Allergies No Known Allergies [No Known Allergies*] Allergy (Verified 04/28/24 13:01) Medication List - Last Reconciled 04/28/24 by Sami Peterson MD cetirizine (Zyrtec) 10 mg PO DAILY diclofenac sodium 1% (Voltaren Arthritis Pain) 2 grams topical QID hydroxyzine pamoate (Vistaril) 25 mg PO TID PRN nabumetone 500 mg PO BID ondansetron 4 mg PO Q8H PRN oxycodone-acetaminophen 5-325 mg (Percocet) 1 tab PO Q6H PRN 28 days topiramate 50 mg (2 x 25 mg) PO BEDTIME triamcinolone acetonide 0.1% 1 appl topical BID 15 days Tobacco use date assessed: 04/28/24 Dental Screening Dental Screen Date: 04/28/24 Did you have a dental visit in the last 12 months?: Yes Did you have a dental problem in the last 6 months where you did not have access to dental care?: No Was dental information given to patient?: Patient has dentist HPI hyperlipidemia HPI Details Patient comes in today for her follow-up visit States that she is experiencing frequent increased pain in her right shoulder and notes that recently, her right 5th finger has also been feeling numb often She would like to know how her shoulder x-rays done a couple of months ago came out Patient states that she feels okay otherwise She denies any dizziness but still has on and off headaches due to her migraine Denies any chest pains, no increased shortness of breath No nausea/vomiting, no abdominal pain No change in bowel habits noted Needs her Percocet Rx refilled today She had her annual mammogram done at [facility] sometime in January or February 2024 States that she is wait listed for her gynecology appt - her previous fold skiver retired recently [facility] Medical History Obesity (BMI 30-39.9) Rash Elevated LFTs Hypertriglyceridemia Overweight (BMI 25.0-29.9) Smoker Normal colonoscopy (~11/21/19) Migraine Surgical History History of colonoscopy (~11/21/19) History of D&C Family History Father No problems noted. Mother Hypertension Dementia Other Mental health problem Social History Housing: House Alcohol intake: current Alcohol intake frequency: holidays/special occasions only Patient Tobacco Use Status: Current someday Tobacco user e-Cigarette/Vaping Use: Never Used Second Hand Smoke Exposure: Yes service: No Current occupational status: employed Cognitive needs: No Hearing needs: No Vision needs: No Questionnaire PHQ-9 Over the last 2 weeks, how often have you been bothered by any of the following problems? 1. Little interest or pleasure in doing things: not at all 2. Feeling down, depressed, or hopeless: not at all 3. Trouble falling or staying asleep, or sleeping too much: not at all 4. Feeling tired or having little energy: not at all 5. Poor appetite or overeating: not at all 6. Feeling bad about yourself - or that you are a failure or have let yourself or your family down: not at all 7. Trouble concentrating on things, such as reading the newspaper or watching television: not at all 8. Moving or speaking so slowly that other people could have noticed. Or the opposite - being so fidgety or restless that you have been moving around a lot more than usual: not at all 9. Thoughts that you would be better off or of hurting yourself in some way: not at all Total score: 0 Depression Screening Interpretation: Negative Depression Screening Done: Yes 62074 - PHQ-9 Billing: Yes Source: Developed by Drs. Jabari Antonio, Barbara Lim, Parish Jeffrey and colleagues, with an educational richie from [employer]. Thrive Questionnaire Date Thrive assessed: 04/28/24 I am a: Patient What is your living situation today?: I have a steady place to live Within the past 12 months, did the food you bought not last and you didn't have the money to get more?: Never true Within the past 12 months, did you worry whether your food would run out before you got money to buy more?: Never true Do you have trouble paying for medicines?: No Do you have trouble getting transportation to medical appointments?: No Do you have trouble paying your heating and electricity bill?: No Do you have trouble taking care of your child, family member or friend?: No Do you have trouble with day-to-day activities such as bathing, preparing meals, shopping, managing finances, etc.?: No Are you currently unemployed and looking for a job?: No Are you interested in more education?: No Please select the resources that you would like help with: None Currently or been in a relationship where the following occur: No concerns reported THRIVE Score: 0 AUDIT C Alcohol Use Questionnaire (AUDIT-C) 1. How often do you have a drink containing alcohol?: Monthly or less 2. How many drinks containing alcohol do you have on a typical day when you are drinking?: 1 or 2 3. How often do you have six or more drinks on one occasion?: Never Total Score: 1 Score Reviewed/Action Taken: Yes KARYN-7 AMB Questionnaire KARYN-7 Date KARYN - 7 assessed: 04/28/24 Feeling nervous, anxious, or on edge: 0 = Not at all Not being able to stop or control worryin = Not at all Worrying too much about different things: 0 = Not at all Trouble relaxin = Not at all Being so restless that it is hard to sit still: 0 = Not at all Becoming easily annoyed or irritable: 0 = Not at all Feeling afraid as if something awful might happen: 0 = Not at all Total KARYN-7 score (0-4 normal; 5-9 mild; 10-14 moderate; 15-21 severe): 0 Source: Developed by Drs. Jabari Antonio, Barbara Lim, Parish Jeffrey and colleagues, with an educational richie from [employer]. Review of Systems Const Denies chills, Denies fatigue, Denies fever(s) and Denies headache(s) ENT Denies dysphagia, Denies dizziness, Denies otalgia, Denies headache(s), Denies neck pain, Denies odynophagia and Denies sore throat Card Denies chest pain, Denies irregular heart rhythm, Denies palpitations and Denies dyspnea Resp Denies chest congestion, Denies cough and Denies dyspnea GI Denies abdominal pain, Denies constipation, Denies dysphagia, Denies heartburn, Denies diarrhea, Denies nausea, Denies odynophagia and Denies vomiting Denies urinary frequency, Denies dysuria and Denies urinary urgency Musc Denies back pain, Reports arthralgias (in the right shoulder - increasing lately) and Denies neck pain Skin/Breast Denies rash Neuro Denies dizziness, Denies headache(s) and Denies paresthesias Psych Reports anxiety and Denies depression Endo Denies fatigue and Denies palpitations Harsha/Lymph Denies easy bruising Physical exam (Primary Care) Vital Signs: Last Vital Signs Pulse 86 04/28/24 12:34 BP 134/80 04/28/24 12:34 Pulse Ox 97 04/28/24 12:34 Oxygen Delivery Method Room Air 04/28/24 12:34 BMI result Body Mass Index 31.4 Tobacco/Smoking Status: Tobacco use Status Tobacco use date assessed 04/28/24 04/28/24 12:37 Patient Tobacco Use Status Current someday Tobacco 04/28/24 12:37 e-Cigarette/Vaping Use Never Used 04/28/24 12:37 PHQ-9: PHQ-9 Score PHQ-9: Total score 0 04/28/24 13:02 Depression Screening Interpretation: Negative Thrive Assessment: Date of Thrive Assessment Date Thrive assessed 04/28/24 04/28/24 12:37 Currently or been in a relationship where the following occur: No concerns reported Const General: no acute distress and alert HENMT Ears: TM's normal bilaterally and EAC's normal Throat: Yes posterior oropharynx normal and Yes tonsils normal (no TP congestion) Neck Neck: Yes no lymphadenopathy and Yes supple Thyroid: Thyroid normal Resp Auscultation: clear to auscultation bilaterally, no rales and no wheezes Cardio Rate: regular rate Rhythm: regular rhythm Heart sounds: no murmurs GI Palpation (GI): Soft to palpation and nontender Auscultation: normal bowel sounds General: Yes no CVA tenderness Back/Spine/Pelvis Back: no CVA tenderness Thoracic/Lumbar Spine: thoracic and lumbar spine normal to inspection Skin Rashes: no rashes Extrem General: Yes no clubbing, cyanosis or edema Right upper extremity: shoulder/upper arm Details: tenderness Location: of the A-C joint and of the scapula; no swelling Coding Level of Care Code Est Pt Level 4 (08584) Diagnoses Primary osteoarthritis, right shoulder M19.011 Hypertriglyceridemia E78.1 Migraine with aura and without status migrainosus, not intractable G43.109 Migraine type: with aura Status migrainosus presence: without status migrainosus Intractability: not intractable Elevated LFTs R79.89 Smoker F17.200 Obesity (BMI 30-39.9) E66.9 Additional Codes PHQ-9 - 01957 - PHQ-9 Billing: Yes ([id number]) Assessment & Plan Assessment & Plan (1) Primary osteoarthritis, right shoulder: Code(s): M19.011 - Primary osteoarthritis, right shoulder Category: Medical Plan: X-rays of the right shoulder done back in December 2023 revealed (+) mild OA changes and (+) tiny calcification along the inferior aspect of the glenoid Advised that her shoulder symptoms are likely due to tendinitis/bursitis rather than osteoarthritis Per request, will refer her to [facility] for orthopedic evaluation and management (2) Hypertriglyceridemia: Code(s): E78.1 - Pure hyperglyceridemia Category: Medical Plan: Her cholesterol levels were within normal limits on her labs done a few months ago Reinforced low cholesterol diet She is again encouraged to try getting back to exercising regularly soon (3) Migraine: Code(s): G43.909 - Migraine, unspecified, not intractable, without status migrainosus Category: Medical Qualifiers: Migraine type: with aura Status migrainosus presence: without status migrainosus Intractability: not intractable Qualified Code(s): G43.109 - Migraine with aura, not intractable, without status migrainosus Plan: Controlled Continue Topiramate 50 mg Q HS for headache prophylaxis Continue Percocet 5-325 mg 1 tablet every 6 hours as needed for symptomatic relief of her severe headaches (4) Elevated LFTs: Code(s): R79.89 - Other specified abnormal findings of blood chemistry Category: Medical Plan: Her LFTs were also back to normal on her labs done a few months ago - were most likely related to her weight Will continue to monitor her LFTs regularly (5) Smoker: Code(s): F17.200 - Nicotine dependence, unspecified, uncomplicated Category: Social Hx Plan: Patient is counseled again on smoking cessation (6) Obesity (BMI 30-39.9): Code(s): E66.9 - Obesity, unspecified Category: Medical Plan: Reinforce diet/exercise as tolerated/lose weight Plan To return in October 2024 for her next annual physical examination Orders: Orders Complete Blood Count Auto Diff 10/16/24 D64.9 - Anemia, unspecified, Z00.00 - Encounter for general adult medical examination without abnormal findings Comprehensive [place]. Panel Fast 10/16/24 E78.00 - Pure hypercholesterolemia, unspecified, Z00.00 - Encounter for general adult medical examination without abnormal findings Lipid Panel 10/16/24 E78.00 - Pure hypercholesterolemia, unspecified, Z00.00 - Encounter for general adult medical examination without abnormal findings UA CC w/rflx Micro + Cult 10/16/24 R30.0 - Dysuria, Z00.00 - Encounter for general adult medical examination without abnormal findings Vitamin D 25-OH Total 10/16/24 E55.9 - Vitamin D deficiency, unspecified, Z00.00 - Encounter for general adult medical examination without abnormal findings TSH reflex Free T4 10/16/24 E78.00 - Pure hypercholesterolemia, unspecified, Z00.00 - Encounter for general adult medical examination without abnormal findings Referrals Orthopedics Referral M19.011 - Primary osteoarthritis, right shoulder Medications: Refilled oxycodone-acetaminophen 5-325 mg (Percocet) 1 tab PO Q6H 28 days PRN 56 tabs 0RF pain
== END 2024-04-28 13:18 | disposition home or self-care (01) ==
PROVIDERS: PCP Internal Medicine; Visit Provider Internal Medicine
DX: M19.011 Primary osteoarthritis, right shoulder (principal); E78.1 Pure hyperglyceridemia; E66.9 Obesity, unspecified; Z68.31 Body mass index [BMI] 31.0-31.9, adult; G43.109 Migraine with aura, not intractable, without status migrainosus; F17.200 Nicotine dependence, unspecified, uncomplicated

== ENCOUNTER → 2024-04-28 12:24 | Outpatient (BNVA) | payer OTHER, SELFPAY | PROVIDERS: PCP Internal Medicine; Visit Provider Internal Medicine ==

== ENCOUNTER 2024-10-28 07:47 | Outpatient (REF) | payer OTHER, SELFPAY ==
[2024-10-28 11:24] LABS: MANUAL DIFF FLAG NO
[2024-10-28 11:30] LABS: Basophils Absolute Auto 0.1 X10*3/uL (0.0-0.2); Basophils Percent Auto 0.7 % (0-2); Eosinophils Absolute Auto 0.1 X10*3/uL (0.0-0.4); Eosinophils Percent Auto 1.2 % (0-4); Hematocrit 41.5 % (37.0-47.0); Imm Gran Abs Auto 0.02 X10*3/uL (0.00-0.03); Imm Gran Pct Auto 0.3 % (0.0-0.4); Lymphocytes Absolute Auto 2.3 X10*3/uL (1.2-4.9); Lymphocytes Percent Auto 33.9 % (20-40); Mean Corpuscular HGB Conc 33.7 g/dl (31.0-35.0); Mean Corpuscular Hemoglobin 34.4 pg (27.0-33.0); Mean Platelet Volume 10.5 fL (9.4-12.3); Monocytes Absolute Auto 0.5 X10*3/uL (0.1-1.2); Monocytes Percent Auto 7.3 % (2-11); Neutrophils Absolute Auto 3.9 x10*3/uL (2.0-8.3); Neutrophils Percent Auto 56.6 % (45-73); Platelet Count 262 X10*3/uL (160-400); Red Blood Count 4.07 X10*6/uL (4.20-5.50); Red Cell Distribution Width 12.8 % (11.0-16.0); White Blood Count 6.8 X10*3/uL (4.8-10.8)
[2024-10-28 11:32] LABS: Appearance Urine Clear; Color Urine Yellow; Glucose Urine UA Negative (Negative); Leukocyte Esterase Urine Trace (Negative); Nitrite Urine Negative (Negative); PH 5.5 (5.0-9.0); Specific Gravity - Urine 1.015 (1.005-1.025); UMIC TRIGGER UACC YES; Urine Blood Negative (Negative); Urine Ketones Negative (Negative); Urine Protein Negative (Neg-Trace)
[2024-10-28 11:38] LABS: Bacteria Urine Trace (None Seen); Hyaline Casts Urine 0-2 /LPF (0-2); RBC Urine 0-2 /HPF (0-2); WBC Urine 0-5 /HPF (0-5)
[2024-10-28 12:34] LABS: Alanine Aminotransferase 70 U/L (0-31); Albumin Level 4.3 g/dL (3.5-5.0); Anion Gap 13 (12-20); Aspartate Amino Transferase 49 U/L (5-31); Bilirubin Total 0.5 mg/dL (0.0-1.0); Blood Urea Nitrogen 26 mg/dL (9-16); Calcium 9.3 mg/dL (8.4-10.2); Carbon Dioxide 27 mmol/L (22-29); Chloride 105 mmol/L (96-108); Cholesterol 249 mg/dL (<200); Estimated Glomerular Filt Rate > 60; Glucose Fasting 97 mg/dL (60-99); HDL Cholesterol 66 mg/dL (>40); LDL Cholesterol Calculated 155 mg/dL (<100); Potassium 4.2 mmol/L (3.3-5.1); Sodium 141 mmol/L (135-145); TSH reflex Free T4 2.42 uIU/mL (0.32-4.0); Total Protein 6.9 g/dL (6.5-8.0); Triglycerides 141 mg/dL (<150); Vitamin D 25-OH Total 150.1 ng/mL (>30)
[2024-10-28 12:42] LABS: Alkaline Phosphatase 93 U/L (39-117)
== END 2024-10-28 07:48 | disposition home or self-care (01) ==
LOC: HO.WFDLDS 07:47
PROVIDERS: Visit Provider Internal Medicine
DX: Z00.00 Encounter for general adult medical examination without abnormal findings (principal); E78.00 Pure hypercholesterolemia, unspecified; E55.9 Vitamin D deficiency, unspecified; D64.9 Anemia, unspecified
CPT/HCPCS: 36415; 80053; 80061; 81001; 82306; 84443; 85025

== ENCOUNTER 2024-11-03 10:33 | Outpatient (AMB) | payer OTHER, SELFPAY ==
[2024-11-03 10:36] VITALS: BP 120/82; PULSE 80; O2SAT 97; BMI 31.7
--- NOTE | 2024-11-03 10:36 | MHC.PC.OV ---
Vital Signs 11/03/24 10:36 Height 5 ft 5 in Weight 190 lb 8 oz BMI 31.7 BP 120/82 Blood Pressure Location Lt brachial Position Sitting Pulse 80 Pulse Source Pulse Oximeter Pulse Oximetry (%) 97 Oxygen Delivery Method Room Air Intake Visit Reasons: annual exam Cosmetologist Required: No Accompanied by: Self / Same As Patient Allergies No Known Allergies [No Known Allergies*] Allergy (Verified 11/03/24 11:33) Medication List - Last Reconciled 11/03/24 by Sami Peterson MD cetirizine (Zyrtec) 10 mg PO DAILY diclofenac sodium 1% (Voltaren Arthritis Pain) 2 grams topical QID hydroxyzine pamoate (Vistaril) 25 mg PO TID PRN nabumetone 500 mg PO BID ondansetron 4 mg PO Q8H PRN oxycodone-acetaminophen 5-325 mg (Percocet) 1 tab PO Q6H PRN 28 days topiramate 50 mg (2 x 25 mg) PO BEDTIME triamcinolone acetonide 0.1% 1 appl topical BID 15 days Tobacco use date assessed: 11/03/24 Dental Screening Dental Screen Date: 11/03/24 Did you have a dental visit in the last 12 months?: Yes Did you have a dental problem in the last 6 months where you did not have access to dental care?: No Was dental information given to patient?: Patient has dentist HPI annual exam HPI Details Patient comes in today for her annual physical examination States that she was seen by [facility] recently for her right shoulder (pain) and was referred to physical therapy She was advised that she should try PT for about 6 weeks first before they can proceed with her evaluation/management Patient states that she currently has a lot to deal with, especially with her elderly parents suffering from dementia and feels that this is putting an undue burden on her part but have advised patient that this is an insurance requirement and without a trial of physical therapy, insurance will generally not cover any other procedures or intervention for her shoulder issues Patient adds that she went on a vacation cruise with her family a few weeks ago and while on the cruise, her left foot was accidentally stepped on by a lady with high-heeled shoes and she has been experiencing increased pain over the dorsum of her left foot since Recalls that her left foot was initially bruised and swelled up for a while before the symptoms gradually subsided over a few days but her pain persisted - notes increased pain now over the dorsum of the foot when she is walking States that she feels okay otherwise She still has on and off headaches (migraine) but her current meds help keep her headaches in check; she denies any dizziness Denies any exertional chest pains, no increased SOB No nausea/vomiting, no abdominal pain No change in bowel habits noted She denies any acute urinary symptoms She had her follow up labs done last week - to discuss her results She had her annual mammogram done at [facility] last month (September 2024) and was advised that her mammogram came out normal She goes to [facility] in [place] and just had her yearly gynecology exam and pap smear done last week She had her screening colonoscopy done with Dr. Bruce back in 2019 - colonoscopy was normal and she will be due for repeat colonosocpy in 10 yrs (2029) States that she's had no menstrual period for about 9 months now so she is still not due to start osteoporosis screening yet [facility] Medical History (Updated 11/03/24 @ 12:22 by Sami Peterson MD) Mixed hyperlipidemia Obesity (BMI 30-39.9) Rash Elevated LFTs Hypertriglyceridemia Overweight (BMI 25.0-29.9) Smoker Normal colonoscopy (~11/21/19) Migraine Surgical History History of colonoscopy (~11/21/19) History of D&C Family History Father No problems noted. Mother Hypertension Dementia Other Mental health problem Social History Housing: House Alcohol intake: current Alcohol intake frequency: holidays/special occasions only Patient Tobacco Use Status: Current someday Tobacco user e-Cigarette/Vaping Use: Never Used Second Hand Smoke Exposure: Yes service: No Current occupational status: employed Cognitive needs: No Hearing needs: No Vision needs: No Questionnaire PHQ-9 Over the last 2 weeks, how often have you been bothered by any of the following problems? 1. Little interest or pleasure in doing things: not at all 2. Feeling down, depressed, or hopeless: several days 3. Trouble falling or staying asleep, or sleeping too much: several days 4. Feeling tired or having little energy: several days 5. Poor appetite or overeating: several days 6. Feeling bad about yourself - or that you are a failure or have let yourself or your family down: not at all 7. Trouble concentrating on things, such as reading the newspaper or watching television: not at all 8. Moving or speaking so slowly that other people could have noticed. Or the opposite - being so fidgety or restless that you have been moving around a lot more than usual: not at all 9. Thoughts that you would be better off or of hurting yourself in some way: not at all Total score: 4 Depression Screening Interpretation: Positive Depression Screening Follow-up: Follow-up Visit Requested Depression Screening Done: Yes 11894 - PHQ-9 Billing: Yes Source: Developed by Drs. Jabari Antonio, Barbara Lim, Parish Jeffrey and colleagues, with an educational richie from [employer]. Thrive Questionnaire Date Thrive assessed: 11/03/24 I am a: Patient What is your living situation today?: I have a steady place to live Within the past 12 months, did the food you bought not last and you didn't have the money to get more?: Never true Within the past 12 months, did you worry whether your food would run out before you got money to buy more?: Never true Do you have trouble paying for medicines?: No Do you have trouble getting transportation to medical appointments?: No Do you have trouble paying your heating and electricity bill?: No Do you have trouble taking care of your child, family member or friend?: No Do you have trouble with day-to-day activities such as bathing, preparing meals, shopping, managing finances, etc.?: No Are you currently unemployed and looking for a job?: No Are you interested in more education?: No Please select the resources that you would like help with: Care for elder or disabled Currently or been in a relationship where the following occur: No concerns reported THRIVE Score: 0 AUDIT C Alcohol Use Questionnaire (AUDIT-C) 1. How often do you have a drink containing alcohol?: 2-3 times a week 2. How many drinks containing alcohol do you have on a typical day when you are drinking?: 1 or 2 3. How often do you have six or more drinks on one occasion?: Never Total Score: 3 Score Reviewed/Action Taken: Yes KARYN-7 AMB Questionnaire KARYN-7 Date KARYN - 7 assessed: 11/03/24 Feeling nervous, anxious, or on edge: 1 = Several days Not being able to stop or control worryin = Several days Worrying too much about different things: 1 = Several days Trouble relaxin = Several days Being so restless that it is hard to sit still: 0 = Not at all Becoming easily annoyed or irritable: 0 = Not at all Feeling afraid as if something awful might happen: 1 = Several days Total KARYN-7 score (0-4 normal; 5-9 mild; 10-14 moderate; 15-21 severe): 5 Source: Developed by Drs. Jabari Antonio, Barbara Lim, Parish Jeffrey and colleagues, with an educational richie from [employer]. Review of Systems Const Denies chills, Reports fatigue, Denies fever(s), Reports headache(s) (on and off - migraine) and Denies malaise Eyes Denies blurry vision, Denies change in vision, Denies irritation and Denies itchy eyes ENT Denies dysphagia, Denies dizziness, Denies otalgia, Reports headache(s) (on and off - migraine), Denies nasal congestion, Denies neck pain, Denies odynophagia, Denies sinus pain and Denies sore throat Card Denies chest pain, Denies rapid heart rate, Denies irregular heart rhythm, Denies palpitations and Denies dyspnea Resp Denies chest congestion, Denies cough, Denies dyspnea and Denies wheezing GI Denies abdominal pain, Denies bloating, Denies constipation, Denies dysphagia, Denies heartburn, Denies diarrhea, Denies nausea, Denies odynophagia and Denies vomiting Denies hematuria, Denies urinary frequency, Denies dysuria, Denies urinary incontinence and Denies urinary urgency Musc Denies back pain, Reports arthralgias (in the right shoulder (chronic); more recently on top of L foot), Denies joint swelling, Denies muscle weakness and Denies neck pain Skin/Breast Denies breast pain, Denies breast mass, Denies change in pigmentation, Denies lesions, Denies rash and Denies unusual bruising Neuro Denies dizziness, Reports headache(s) (on and off - migraine) and Denies paresthesias Psych Reports anxiety (most related to her parents' dementia) and Denies depression Endo Reports fatigue and Denies palpitations Harsha/Lymph Denies easy bruising Aller/Immun Denies itchy eyes and Denies wheezing Physical exam (Primary Care) Vital Signs: Last Vital Signs Pulse 80 11/03/24 10:36 BP 120/82 11/03/24 10:36 Pulse Ox 97 11/03/24 10:36 Oxygen Delivery Method Room Air 11/03/24 10:36 BMI result Body Mass Index 31.7 Tobacco/Smoking Status: Tobacco use Status Tobacco use date assessed 11/03/24 11/03/24 10:39 Patient Tobacco Use Status Current someday Tobacco 11/03/24 10:39 e-Cigarette/Vaping Use Never Used 11/03/24 10:39 PHQ-9: PHQ-9 Score PHQ-9: Total score 4 11/03/24 11:35 Depression Screening Interpretation: Positive Depression Screening Follow-up: Follow-up Visit Requested Thrive Assessment: Date of Thrive Assessment Date Thrive assessed 11/03/24 11/03/24 10:39 Currently or been in a relationship where the following occur: No concerns reported Const General: no acute distress, alert and awake Orientation/consciousness: patient oriented x3 HENMT Head: Yes normocephalic and Yes atraumatic Ears: external ears normal, TM's normal bilaterally and EAC's normal General nose exam: No nasal discharge present Face and sinus: Yes normal facial exam and Yes sinuses nontender Teeth and gingiva: dentition normal Throat: Yes posterior oropharynx normal and Yes tonsils normal (no TP congestion) Eyes Eyelids: Yes eyelids normal Conjunctivae: conjunctivae normal Pupils: Equal, round and reactive pupils present EOM: EOMs intact bilaterally Neck Neck: Yes no lymphadenopathy and Yes supple Thyroid: Thyroid normal Resp Auscultation: clear to auscultation bilaterally, no rales and no wheezes Cardio Rate: regular rate Rhythm: regular rhythm Heart sounds: no murmurs GI Palpation (GI): Soft to palpation, nontender and No hepatosplenomegaly present Auscultation: normal bowel sounds General: Yes no CVA tenderness Back/Spine/Pelvis Back: no CVA tenderness Thoracic/Lumbar Spine: thoracic and lumbar spine normal to inspection Skin Lesions: no lesions Rashes: no rashes Neuro General: patient oriented x3, moves all extremities, no focal motor deficits and CN's II-XI intact bilaterally Cranial nerves: Yes Equal, round and reactive pupils present Cognition (Neuro): normal cognition Gait exam (Neuro): Normal gait present Extrem General: Yes no clubbing, cyanosis or edema Right upper extremity: shoulder/upper arm Details: tenderness Location: of the A-C joint; no swelling Left lower extremity: foot Details: tenderness Location: of the dorsal foot and no edema Results Reviewed Results Reviewed: Laboratory Tests 10/26/23 10/28/24 10/28/24 08:02 07:49 07:53 WBC 6.8 Hgb 14.0 Hct 41.5 Plt Count 262 Sodium 141 Potassium 4.2 Creatinine 0.76 Estimated GFR > 60 Fasting Glucose 97 Calcium 9.3 AST 49 H ALT 70 H Triglycerides 70 141 Cholesterol 196 249 H LDL Cholesterol, Calc 116 H 155 H HDL Cholesterol 66 66 25-OH Vitamin D Total 150.1 TSH 2.42 Ur Specific [place] 1.015 Urine Protein Negative Urine Glucose (UA) Negative Urine Blood Negative Urine Nitrite Negative Ur Leukocyte Esterase Trace H Coding Level of Care Code Est Pt Prev Care 40-64y(31520) Diagnoses Annual physical exam Z00.00 Primary osteoarthritis, right shoulder M19.011 Mixed hyperlipidemia E78.2 Migraine with aura and without status migrainosus, not intractable G43.109 Migraine type: with aura Status migrainosus presence: without status migrainosus Intractability: not intractable Elevated LFTs R79.89 Left foot pain M79.672 Smoker F17.200 Obesity (BMI 30-39.9) E66.9 Additional Codes PHQ-9 - 00815 - PHQ-9 Billing: Yes ([id number]) Assessment & Plan Assessment & Plan (1) Annual physical exam: Code(s): Z00.00 - Encounter for general adult medical examination without abnormal findings Category: Medical Plan: Results of her labs done last week reviewed and discussed with patient She is currently up-to-date with her cancer screenings She had her annual mammogram done at [facility] last month (September 2024) and was advised that her mammogram came out normal She goes to [facility] in [place] and just had her yearly gynecology exam and pap smear done last week She had her screening colonoscopy done with Dr. Bruce back in 2019 - colonoscopy was normal and she will be due for repeat colonosocpy in 10 yrs (2029) States that she's had no menstrual period for about 9 months now so she is still not due to start osteoporosis screening yet (2) Primary osteoarthritis, right shoulder: Code(s): M19.011 - Primary osteoarthritis, right shoulder Category: Medical Plan: X-rays of the right shoulder done back in December 2023 revealed (+) mild OA changes and (+) tiny calcification along the inferior aspect of the glenoid Per request, she was referred to [facility] for orthopedic evaluation and management - states that she was finally seen a few weeks ago and was sent for physical therapy, which she is supposed to get for about 6 weeks after which she will then be reevaluated by orthopedics (3) Mixed hyperlipidemia: Code(s): E78.2 - Mixed hyperlipidemia Category: Medical Plan: Patient has been advised that her cholesterol levels (TG, LDL and total cholesterol) have all increased significantly from previous on her recent labs Patient admits to poor compliance with her diet over the past few months - reinforced low cholesterol diet Will recheck her labs and fasting lipids in 6 months for follow up - she is advised that cholesterol-lowering Rx would be an option if she cannot get her cholesterol numbers improved significantly over the next few months (4) Migraine: Code(s): G43.909 - Migraine, unspecified, not intractable, without status migrainosus Category: Medical Qualifiers: Migraine type: with aura Status migrainosus presence: without status migrainosus Intractability: not intractable Qualified Code(s): G43.109 - Migraine with aura, not intractable, without status migrainosus Plan: Controlled Continue Topiramate 50 mg Q HS for headache prophylaxis Continue Percocet 5-325 mg 1 tablet every 6 hours as needed for symptomatic relief of her severe headaches Patient states that she will need her FMLA forms updated again (every 6 months) and left her forms with us today for completion Her pain management agreement is updated and signed today as well (5) Elevated LFTs: Code(s): R79.89 - Other specified abnormal findings of blood chemistry Category: Medical Plan: Have cautioned patient again that her LFTs are again significantly elevated on her recent labs, most likely due to her weight as well as her recent significant increase in her cholesterol numbers Will continue to monitor her LFTs regularly for now and if these continue to stay high, she may need abdominal US again for further evaluation (6) Left foot pain: Code(s): M79.672 - Pain in left foot Category: Medical Plan: Will send patient for x-rays of the left foot JAMAL for further evaluation - r/o fracture Will provide her with Rx for a walking boot in the meantime, which she can wear PRN to help minimize aggravating her foot pain (7) Smoker: Code(s): F17.200 - Nicotine dependence, unspecified, uncomplicated Category: Social Hx Plan: Patient is counseled again on complete smoking cessation Will refer her for CT lung screening (8) Obesity (BMI 30-39.9): Code(s): E66.9 - Obesity, unspecified Category: Medical Plan: Reinforce diet/exercise as tolerated/lose weight Plan Follow up in 6 months Orders: Orders XR foot LT min 3V Today M79.672 - Pain in left foot Lipid Panel 6 Months E78.00 - Pure hypercholesterolemia, unspecified Comprehensive [place]. Panel Fast 6 Months E78.00 - Pure hypercholesterolemia, unspecified Referrals Thoracic/General Surgery Referral F17.200 - Nicotine dependence, unspecified, uncomplicated, Z12.2 - Encounter for screening for malignant neoplasm of respiratory organs Medications: New [WALKING BOOT (left foot)] As directed 1 ea 0RF left foot pain, s/p trauma M79.672 - Pain in left foot
== END 2024-11-03 11:52 | disposition home or self-care (01) ==
LOC: HO.HMCH 10:35
PROVIDERS: PCP Internal Medicine; Visit Provider Internal Medicine
DX: Z00.00 Encounter for general adult medical examination without abnormal findings (principal); M19.011 Primary osteoarthritis, right shoulder; E66.9 Obesity, unspecified; Z68.31 Body mass index [BMI] 31.0-31.9, adult; E78.2 Mixed hyperlipidemia; G43.109 Migraine with aura, not intractable, without status migrainosus; R79.89 Other specified abnormal findings of blood chemistry; M79.672 Pain in left foot; F17.200 Nicotine dependence, unspecified, uncomplicated

== ENCOUNTER → 2024-11-03 10:33 | Outpatient (BNVA) | payer OTHER, SELFPAY | PROVIDERS: PCP Internal Medicine; Visit Provider Internal Medicine | DX: Z00.00 Encounter for general adult medical examination without abnormal findings (principal); M19.011 Primary osteoarthritis, right shoulder; E78.2 Mixed hyperlipidemia; G43.109 Migraine with aura, not intractable, without status migrainosus; R79.89 Other specified abnormal findings of blood chemistry; M79.672 Pain in left foot; E66.9 Obesity, unspecified; Z68.31 Body mass index [BMI] 31.0-31.9, adult; F17.200 Nicotine dependence, unspecified, uncomplicated | CPT/HCPCS: 96127 ==

== ENCOUNTER 2025-02-20 10:04 | Outpatient (AMB) | payer OTHER, SELFPAY ==
--- NOTE | 2025-02-20 07:54 | A.OFFVIS_ITS ---
Intake Visit Reasons: Current Smoker Allergies No Known Allergies (No Known Allergies*) Allergy (Verified 11/03/24 11:33) HPI HPI Current Smoker: Details: Initial visit for this 54yo smoker with a 25PYH. Patient started smoking at age 19 for 35 years at 1/2-1ppd. Now 1/2ppd . Denies marijuana use. Denies second hand smoke exposure. Denies exposure to chemicals or substances like asbestos. . Denies known family history of lung cancer. Personal history of skin cancer. Malignant Melenoma [address] in last year. . Denies recent travel outside the [place]. Denies recent respiratory illness or recent hospitalization for respiratory issues. History of testing positive for COVID. Admits receiving COVID Vaccine. . Denies fever, chills, new/worsening cough, hemoptysis, hoarseness or dysphagia. Denies significant chest pain, significant dyspnea or unintentional weight loss. Patient Lung Cancer Screening Questionnaire reviewed with patient by provider. . Shared Decision Making Completed. Patient meets criteria. Discussed in detail with patient, the risk vs benefit of LDCT screening. Patient consents to proceed with scan. Discussed smoking cessation. [facility], [facility] Medical History (Updated 02/20/25 @ 10:24 by Manda Melara PA-C) History of malignant melanoma Nicotine dependence, cigarettes, uncomplicated Mixed hyperlipidemia Obesity (BMI 30-39.9) Rash Elevated LFTs Hypertriglyceridemia Normal colonoscopy (~11/21/19) Migraine Surgical History (Updated 02/20/25 @ 10:19 by Manda Melara PA-C) History of tonsillectomy History of melanoma excision History of colonoscopy (~11/21/19) History of D&C Family History Father No problems noted. Mother Hypertension Dementia Other Mental health problem Social History (Updated 02/20/25 @ 10:24 by Manda Melara PA-C) Housing: House Alcohol intake: current Alcohol intake frequency: holidays/special occasions only Patient Tobacco Use Status: Current someday Tobacco user Years Smoked: (onset 19yo, 1/2-1ppd x 35yrs, now 1/2ppd - 25PYH) e-Cigarette/Vaping Use: Never Used Second Hand Smoke Exposure: Yes service: No Current occupational status: employed Cognitive needs: No Hearing needs: No Vision needs: No Assessment & Plan Assessment & Plan (1) Nicotine dependence, cigarettes, uncomplicated: Comment: (onset 19yo, 1/2-1ppd x 35yrs, now 1/2ppd - 25PYH) Code(s): F17.210 - Nicotine dependence, cigarettes, uncomplicated Category: Medical Plan: - SDM visit completed today in office. - Patient meets criteria for LDCT for lung cancer screening purposes and is asymptomatic. - Smoking cessation counseling offered. Patients can always call [phone]. - Will arrange for a LDCT scan of the chest for screening purposes at [facility]. - Risks, benefits, and alternatives were discussed in detail and the patient agrees to proceed. - Risks discussed include but are not limited to: radiation exposure, anxiety during testing and while awaiting results, false negatives, false positives and possibility of additional intervention such as further imaging or surgical procedures for benign disease. - Benefits are obviously detection of lung cancer at an early stage which can lead to improved outcomes. - Discussed the importance of screening program compliance with adherence to ye rasheeda LDCT scan as scheduled - or sooner interval scans for personalized screening regimen. - Discussed follow up plan. Our office will send a letter discussing results and if needed set up phone call and office visit based on CT findings. - Patient educated on results categorization and the management decisions for suspicious findings potentially found on the screening LDCT scan. Any patient with a Lung RADS score of 3 or 4 will be reviewed by a multidisciplinary team at [facility] to form a plan of action in regards to scan findings. - If further work up is warranted for a suspicious lung finding this will be followed by the Lung Cancer Screening program in conjunction with the Thoracic Surgery Department at [facility]. - A copy of the office note and LDCT will be sent to the patient's PCP - as well as documentation on any associated further plans of care. - Incidental findings on LDCT are the PCP's responsibility. These findings are indicated with an S finding on the LDCT Assessment. A note discussing the findings will be sent to the PCP who is then responsible for further management. - All questions answered.? Coding Level of Care Code Lung Cancer Screening G0296 Diagnoses Nicotine dependence, cigarettes, uncomplicated F17.210
--- OUTSIDE RECORDS SUMMARY | 2025-02-20 10:59 | XMS_ITS | Patient Health Record ---
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 Name Role Phone Nicholas MACIAS, [place] Primary Care Provider Mack Matta Jr Unavailable [phone] Allergies Allergen (clinical drug ingredient) Drug/Non Drug Allergy documented on EMR Reaction Allergy Type Onset Date Status bees (uncoded) Unknown Allergy Activ e Reason For Referral No Information Medications Medication SIG (Take, Route, Frequency, Duration) Notes Start Date End Date Status oxyCODONE-Acetaminophen 5-325 MG (Schedule II Drug) TAKE 1 TABLET BY MOUTH EVERY 6 HOURS NEEDED FOR 7 DAYS Oral for 7 Active Topiramate 25 MG TAKE 2 TABLETS BY [facility] EVERY DAY AT BEDTIME Oral for 90 Active MiraLax (colon prep) 8.3 ounce ((238) grams mixed with Gatorade or Crystal Light orally begin at 5:00 p.m. the day before the procedure for 1 day 09/17/2019 Active Zofran 4 MG 1 tablet Orally Once a day/ as needed Active Centrum Silver Adult 50+ - as directed Orally Active Calcium 500 MG 1 tablet with meals Orally Twice a day for 30 day(s) Active Airborne - as directed Orally Active Immunizations Vaccine Route Administration Date Status Comme nts Influenza Unknown 03/18/2019 Administered Social History Tobacco Use: Social History Observation Description Date Details (start date - stop date) Current Smoker NA - NA Tobacco Use/Smoking Question Answer Notes Patient is a current smoker How often do you smoke cigarettes? every day How many cigarettes a day do you smoke? 6-10 Alcohol Screen Question Answer Notes Did you have a drink contain ing alcohol in the past year? Yes How often did you have a dri nk containing alcohol in the past year? Monthly or less (1 point) How many drinks did you have on a typical day when you were drinking in the past year? 1 or 2 drinks (0 point) How often did you have 6 or more drinks on one occasion in the past year? Never (0 point) Points 1 Interpretation Negative Problems Problem Type SNOMED Code ICD Code Onset Dates Problem Status W/U Status Risk Notes Problem [id number] Blood in stool (K92.1) Active confirmed Plan Of Treatment Future Test Test Name Order Date COLONOSCOPY 09/17/2019 Insurance Providers Payer Name Payer Address Payer Phone Subscriber Number Group Number Insured Name Patient Relationship to Insured Coverage Start Date Coverage End Date [facility] [address] [facility] [place] [phone] [id number] ANNABELLA LATHAM Self - patient is the insured Medical (General) History Medical History History ICD Code migraine headaches Surgical History Surgery Date(Month/Year) malignant melanoma in 1984 left inner th [facility] ( [place]) 1984 tonsillectomy and adenoidectomy 1991 hemorrhoidectomy 2009
== END 2025-02-20 10:40 | disposition home or self-care (01) ==
LOC: HO.HPS 10:05
PROVIDERS: PCP Internal Medicine; Referring Provider Internal Medicine; Visit Provider Physician Assistant Medical
DX: F17.210 Nicotine dependence, cigarettes, uncomplicated (principal)
CPT/HCPCS: G0296

== ENCOUNTER 2025-02-20 10:25 | Outpatient (REF) | payer OTHER, SELFPAY ==
--- NOTE | ~2025-02-20 | CT_ITS ---
CLINICAL HISTORY: Z87.891 - Personal history of nicotine dependence CT lung cancer screening (LDCT) Comparison: None provided Technique: Axial CT images of the chest using low-dose technique. Referring provider counseled the patient on shared decision-making for LDCT screening. Additional counseling was provided on smoking cessation. Effective radiation dose total: DLP 44.5 mGycm, CTDIvol 1.4 mGy. Findings: Smoking-related lung changes. A few small calcified right lung granulomas. Otherwise no evidence of lung nodule. Coronary artery calcifications: None Limited upper abdomen: Unremarkable Other: None IMPRESSION: LungRADS 1: Negative exam. Continue annual screening with low dose Chest CT in 12 months. ##L1## This document has been electronically signed by: Shani Jordan MD on 02/21/2025 08:26:37
== END 2025-02-20 10:26 | disposition home or self-care (01) ==
LOC: HO.CT 10:25
PROVIDERS: PCP Internal Medicine; Visit Provider Physician Assistant Medical
DX: Z12.2 Encounter for screening for malignant neoplasm of respiratory organs (principal); Z87.891 Personal history of nicotine dependence
CPT/HCPCS: 71271; G0296

== ENCOUNTER → 2025-02-20 10:26 | Outpatient (BNV) | payer OTHER, SELFPAY | PROVIDERS: PCP Internal Medicine; Visit Provider Radiology Diagnostic Radiology | DX: Z87.891 Personal history of nicotine dependence (principal) | CPT/HCPCS: 71271 ==

== ENCOUNTER 2025-04-29 07:48 | Outpatient (REF) | payer OTHER, SELFPAY ==
--- OUTSIDE RECORDS SUMMARY | 2025-04-29 07:52 | XMS_ITS | Patient Health Record ---
Author Organization [facility] Address [address] [place] [address] Care Team Providers Care Cable Inspector Name Role Phone Nicholas MACIAS, [place] Primary Care Provider Mack Matta Jr Unavailable Allergies Allergen (clinical drug ingredient) Drug/Non Drug Allergy documented on EMR Reaction Allergy Type Onset Date Status bees (uncoded) Unknown Allergy Activ e Reason For Referral No Information Medications Medication SIG (Take, Route, Frequency, Duration) Notes Start Date End Date Status oxyCODONE-Acetaminophen 5-325 MG (Schedule II Drug) TAKE 1 TABLET BY MOUTH EVERY 6 HOURS NEEDED FOR 7 DAYS Oral; Duration: 7 Active Topiramate 25 MG TAKE [address] TABLE[address] [facility] EVERY DAY AT BEDTIME Oral; Duration: 90 Active MiraLax (colon prep) 8.3 ounce ((238) grams mixed with Gatorade or Crystal Light orally begin at 5:00 p.m. the day before the procedure; Duration: 1 day 09/17/2019 Active Zofran 4 MG 1 tablet Orally Once a day/ as needed Active Centrum Silver Adult 50+ - as directed Orally Active Calcium 500 MG 1 tablet with meals Orally Twice a day; Duration: 30 day(s) Active Airborne - as directed [...] Problem Status W/U Status Risk Notes Problem Blood in stool ([id number]) Blood in stool (K92.1) Active confirmed Plan Of Treatment Future Test Test Name Order Date COLONOSCOPY 09/17/2019 Insurance Providers Payer Name Payer Address Payer Phone Subscriber Number Group Number Insured Name Patient Relationship to Insured Coverage Start Date Coverage End Date [facility] [address] [facility] [phone] [id number] ANNABELLA LATHAM Self - patient is the insured Medical (General) History Medical History History ICD Code migraine headaches Surgical History Surgery Date(Month/Year) malignant melanoma in 1984 left inner th [facility] ( [place]) 1984 tonsillectomy and adenoidectomy 1991 hemorrhoidectomy 2009
[2025-04-29 12:45] LABS: Alanine Aminotransferase 42 U/L (0-31); Albumin Level 4.5 g/dL (3.5-5.0); Alkaline Phosphatase 95 U/L (39-117); Anion Gap 14 (12-20); Aspartate Amino Transferase 36 U/L (5-31); Blood Urea Nitrogen 25 mg/dL (9-16); Calcium 9.4 mg/dL (8.4-10.2); Carbon Dioxide 25 mmol/L (22-29); Chloride 104 mmol/L (96-108); Cholesterol 234 mg/dL (<200); Estimated Glomerular Filt Rate > 60; HDL Cholesterol 60 mg/dL (>40); Potassium 4.0 mmol/L (3.3-5.1); Sodium 139 mmol/L (135-145); Total Protein 6.9 g/dL (6.5-8.0); Triglycerides 158 mg/dL (<150)
== END 2025-04-29 07:49 | disposition home or self-care (01) ==
LOC: HO.WFDLDS 07:48
PROVIDERS: Visit Provider Internal Medicine
DX: E78.00 Pure hypercholesterolemia, unspecified (principal)
CPT/HCPCS: 36415; 80053; 80061

== ENCOUNTER 2025-06-01 10:13 | Outpatient (AMB) | payer OTHER, SELFPAY ==
--- NOTE | 2025-06-01 10:18 | MHC.PC.OV ---
Vital Signs 06/01/25 10:19 Height 5 ft 5 in Weight 193 lb BMI 32.1 BP 128/90 H Blood Pressure Location Lt brachial Position Sitting Pulse 87 Pulse Source Pulse Oximeter Pulse Oximetry (%) 97 Oxygen Delivery Method Room Air Intake Visit Reasons: follow up Single Resource Boss Required: No Accompanied by: Self / Same As Patient Allergies No Known Allergies (No Known Allergies*) Allergy (Verified 06/01/25 10:56) Medication List - Last Reconciled 06/01/25 by Sami Peterson MD cetirizine (Zyrtec) 10 mg PO DAILY diclofenac sodium 1% (Voltaren Arthritis Pain) 2 grams topical QID hydroxyzine pamoate (Vistaril) 25 mg PO TID PRN nabumetone 500 mg PO BID ondansetron 4 mg PO Q8H PRN oxycodone-acetaminophen 5-325 mg (Percocet) 1 tab PO Q6H PRN 28 days topiramate 50 mg (2 x 25 mg) PO BEDTIME triamcinolone acetonide 0.1% 1 appl topical BID 15 days [WALKING BOOT (left foot) As directed] Tobacco use date assessed: 06/01/25 Dental Screening Dental Screen Date: 06/01/25 Did you have a dental visit in the last 12 months?: Yes Did you have a dental problem in the last 6 months where you did not have access to dental care?: No Was dental information given to patient?: Patient has dentist HPI follow up HPI Details Patient comes in today for her follow up visit She reports experiencing recurrent pain in her knees lately, as well as some weight gain again since her last visit She has also noticed some impairment of near vision lately and is attributing these recent changes to her getting older She just got off from work (works 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 shifts) so she is feeling a little tired now as she has not yet gotten any sleep today Her parents recently - her father passed two years ago and her mother in October of this year (2024) and they are still struggling with clearing up their estate and belongings as her parents had a tendency to save everything States that she still has recurrent headaches but her current medications are helping adequately She denies any dizziness Denies any chest pains, no increased SOB No nausea/vomiting, no abdominal pain No change in bowel habits noted She had her follow up labs done last month - to discuss her results [facility] Medical History History of malignant melanoma Nicotine dependence, cigarettes, uncomplicated Mixed hyperlipidemia Obesity (BMI 30-39.9) Rash Elevated LFTs Hypertriglyceridemia Normal colonoscopy (~11/21/19) Migraine Surgical History History of tonsillectomy History of melanoma excision History of colonoscopy (~11/21/19) History of D&C Family History Father No problems noted. Mother Hypertension Dementia Other Mental health problem Social History Housing: House Alcohol intake: current Alcohol intake frequency: holidays/special occasions only Patient Tobacco Use Status: Current someday Tobacco user Years Smoked: (onset 19yo, 1/2-1ppd x 35yrs, now 1/2ppd - 25PYH) e-Cigarette/Vaping Use: Never Used Second Hand Smoke Exposure: Yes service: No Current occupational status: employed Cognitive needs: No Hearing needs: No Vision needs: No Questionnaire PHQ-9 Over the last 2 weeks, how often have you been bothered by any of the following problems? 1. Little interest or pleasure in doing things: not at all 2. Feeling down, depressed, or hopeless: several days 3. Trouble falling or staying asleep, or sleeping too much: several days 4. Feeling tired or having little energy: several days 5. Poor appetite or overeating: several days 6. Feeling bad about yourself - or that you are a failure or have let yourself or your family down: not at all 7. Trouble concentrating on things, such as reading the newspaper or watching television: not at all 8. Moving or speaking so slowly that other people could have noticed. Or the opposite - being so fidgety or restless that you have been moving around a lot more than usual: not at all 9. Thoughts that you would be better off or of hurting yourself in some way: not at all Total score: 4 Depression Screening Interpretation: Positive Depression Screening Follow-up: Follow-up Visit Requested Depression Screening Done: Yes 49254 - PHQ-9 Billing: Yes Source: Developed by Drs. Jabari Antonio, Barbara Lim, Parish Jeffrey and colleagues, with an educational richie from [employer] / [employer]. Thrive Questionnaire Date Thrive assessed: 06/01/25 I am a: Patient What is your living situation today?: I have a steady place to live Within the past 12 months, did the food you bought not last and you didn't have the money to get more?: Never true Within the past 12 months, did you worry whether your food would run out before you got money to buy more?: Never true Do you have trouble paying for medicines?: No Do you have trouble getting transportation to medical appointments?: No Do you have trouble paying your heating and electricity bill?: No Do you have trouble taking care of your child, family member or friend?: No Do you have trouble with day-to-day activities such as bathing, preparing meals, shopping, managing finances, etc.?: No Are you currently unemployed and looking for a job?: No Are you interested in more education?: No Please select the resources that you would like help with: Care for elder or disabled Currently or been in a relationship where the following occur: No concerns reported THRIVE Score: 0 AUDIT C Alcohol Use Questionnaire (AUDIT-C) 1. How often do you have a drink containing alcohol?: 2-3 times a week 2. How many drinks containing alcohol do you have on a typical day when you are drinking?: 1 or 2 3. How often do you have six or more drinks on one occasion?: Never Total Score: 3 Score Reviewed/Action Taken: Yes KARYN-7 AMB Questionnaire KARYN-7 Date KARYN - 7 assessed: 06/01/25 Feeling nervous, anxious, or on edge: 1 = Several days Not being able to stop or control worryin = Several days Worrying too much about different things: 1 = Several days Trouble relaxin = Several days Being so restless that it is hard to sit still: 0 = Not at all Becoming easily annoyed or irritable: 0 = Not at all Feeling afraid as if something awful might happen: 1 = Several days Total KARYN-7 score (0-4 normal; 5-9 mild; 10-14 moderate; 15-21 severe): 5 Source: Developed by Drs. Jabari Antonio, Barbara Lim, Parish Jeffrey and colleagues, with an educational richie from [employer]. Review of Systems Const Denies chills, Reports fatigue, Denies fever(s) and Reports headache(s) (on and off - migraine) ENT Denies dysphagia, Denies dizziness, Denies otalgia, Reports headache(s) (on and off - migraine), Denies neck pain, Denies odynophagia and Denies sore throat Card Denies chest pain, Denies rapid heart rate, Denies irregular heart rhythm, Denies palpitations and Denies dyspnea Resp Denies chest congestion, Denies cough and Denies dyspnea GI Denies abdominal pain, Denies constipation, Denies dysphagia, Denies heartburn, Denies diarrhea, Denies nausea, Denies odynophagia and Denies vomiting Denies difficulty voiding, Denies nocturia, Denies dysuria and Denies urinary urgency Musc Denies back pain, Reports arthralgias (in the right shoulder (chronic)) and Denies neck pain Skin/Breast Denies rash Neuro Denies dizziness, Reports headache(s) (on and off - migraine) and Denies paresthesias Psych Denies anxiety Endo Reports fatigue and Denies palpitations Harsha/Lymph Denies easy bruising Physical exam (Primary Care) Vital Signs: Last Vital Signs Pulse 87 06/01/25 10:19 BP 128/90 H 06/01/25 10:19 Pulse Ox 97 06/01/25 10:19 Oxygen Delivery Method Room Air 06/01/25 10:19 BMI result Body Mass Index 32.1 Tobacco/Smoking Status: Tobacco use Status Tobacco use date assessed 06/01/25 06/01/25 10:23 Patient Tobacco Use Status Current someday Tobacco 06/01/25 10:23 e-Cigarette/Vaping Use Never Used 06/01/25 10:23 PHQ-9: PHQ-9 Score PHQ-9: Total score 4 06/01/25 11:00 Depression Screening Interpretation: Positive Depression Screening Follow-up: Follow-up Visit Requested Thrive Assessment: Date of Thrive Assessment Date Thrive assessed 06/01/25 06/01/25 10:23 Currently or been in a relationship where the following occur: No concerns reported Const General: no acute distress and alert HENMT Ears: TM's normal bilaterally and EAC's normal Throat: Yes posterior oropharynx normal and Yes tonsils normal (no TP congestion) Neck Neck: Yes no lymphadenopathy and Yes supple Thyroid: Thyroid normal Resp Auscultation: clear to auscultation bilaterally, no rales and no wheezes Cardio Rate: regular rate Rhythm: regular rhythm Heart sounds: no murmurs GI Palpation (GI): Soft to palpation and nontender Auscultation: normal bowel sounds General: Yes no CVA tenderness Back/Spine/Pelvis Back: no CVA tenderness Thoracic/Lumbar Spine: No lumbar spinal tenderness Skin Rashes: no rashes Extrem General: Yes no clubbing, cyanosis or edema Right upper extremity: shoulder/upper arm Details: tenderness Location: of the A-C joint; no swelling Results Reviewed Results Reviewed: Laboratory Tests 04/29/25 07:49 Sodium 139 Potassium 4.0 Creatinine 0.75 Estimated GFR > 60 Fasting Glucose 90 Calcium 9.4 AST 36 H ALT 42 H Alkaline Phosphatase 95 Triglycerides 158 H Cholesterol 234 H LDL Cholesterol, Calc 143 H HDL Cholesterol 60 Coding Level of Care Code Est Pt Level 4 (37465) Diagnoses Primary osteoarthritis, right shoulder M19.011 Arthralgia, unspecified joint M25.50 Joint pain location: unspecified Mixed hyperlipidemia E78.2 Elevated LFTs R79.89 Migraine with aura and without status migrainosus, not intractable G43.109 Intractability: not intractable Migraine type: with aura Status migrainosus presence: without status migrainosus Smoker F17.200 Obesity (BMI 30-39.9) E66.9 Additional Codes PHQ-9 - 20116 - PHQ-9 Billing: Yes ([id number]) Assessment & Plan Assessment & Plan (1) Primary osteoarthritis, right shoulder: Code(s): M19.011 - Primary osteoarthritis, right shoulder Category: Medical Plan: X-rays of the right shoulder done back in December 2023 revealed (+) mild OA changes and (+) tiny calcification along the inferior aspect of the glenoid States that her shoulder symptoms have improved somewhat with physical therapy Follow up with orthopedics ([facility]) as scheduled (2) Arthralgia: Code(s): M25.50 - Pain in unspecified joint Category: Medical Qualifiers: Joint pain location: unspecified Qualified Code(s): M25.50 - Pain in unspecified joint Plan: Involving a few joints, especially both knees X-rays of the knees back in 2021 came out normal Continue Nabumetone 500 mg BID PRN and Voltaren gel 1% 2 gm apply QID PRN (3) Mixed hyperlipidemia: Code(s): E78.2 - Mixed hyperlipidemia Category: Medical Plan: Results of her labs done last month reviewed and discussed with patient - she has been advised that her cholesterol levels (TG, LDL and total cholesterol) have all improved slightly from previous but they are still elevated and higher than recommended Reinforced low cholesterol diet Patient is now agreeable to starting on cholesterol-lowering medications so will start her on Atorvastatin 10 mg QD Will recheck her labs and fasting lipids in 3 months for follow up; will also recheck her LFTs then (4) Elevated LFTs: Code(s): R79.89 - Other specified abnormal findings of blood chemistry Category: Medical Plan: Have cautioned patient again that her LFTs are still elevated on her recent labs but they have improved from a few months ago Advised again that this is most likely due to her weight as well as her recent significant increase in her cholesterol numbers Will continue to monitor her LFTs regularly for now and she may need abdominal US done again for further evaluation if her LFTs are persistently or progressively elevated As she is being started currently on Atorvastatin, will have her recheck her LFTs in 3 months for follow up (5) Migraine: Code(s): G43.909 - Migraine, unspecified, not intractable, without status migrainosus Category: Medical Qualifiers: Intractability: not intractable Migraine type: with aura Status migrainosus presence: without status migrainosus Qualified Code(s): G43.109 - Migraine with aura, not intractable, without status migrainosus Plan: Controlled Continue Topiramate 50 mg Q HS for headache prophylaxis Continue Percocet 5-325 mg 1 tablet every 6 hours as needed for symptomatic relief of her severe headaches Her pain management agreement was updated and signed at her last visit (6) Smoker: Code(s): F17.200 - Nicotine dependence, unspecified, uncomplicated Category: Social Hx Plan: Patient is counseled again on complete smoking cessation CT lung screening done back in February 2025 came out negative (7) Obesity (BMI 30-39.9): Code(s): E66.9 - Obesity, unspecified Category: Medical Plan: Reinforce diet/exercise as tolerated/lose weight Plan Follow up in 3 months Orders: Orders Complete Blood Count Auto Diff 3 Months D64.9 - Anemia, unspecified Lipid Panel 3 Months E78.00 - Pure hypercholesterolemia, unspecified TSH reflex Free T4 3 Months E78.00 - Pure hypercholesterolemia, unspecified UA CC w/rflx Micro + Cult 3 Months R30.0 - Dysuria Comprehensive [place]. Panel Fast 3 Months E78.00 - Pure hypercholesterolemia, unspecified Vitamin D 25-OH Total 3 Months E55.9 - Vitamin D deficiency, unspecified Medications: New atorvastatin (Lipitor) 10 mg PO BEDTIME 90 tabs 1RF 90 days
[2025-06-01 10:19] VITALS: BP 128/90; PULSE 87; O2SAT 97; BMI 32.1
== END 2025-06-01 11:15 | disposition home or self-care (01) ==
LOC: HO.HMCH 10:13
PROVIDERS: PCP Internal Medicine; Visit Provider Internal Medicine
DX: M19.011 Primary osteoarthritis, right shoulder (principal); M25.50 Pain in unspecified joint; E66.9 Obesity, unspecified; Z68.32 Body mass index [BMI] 32.0-32.9, adult; E78.2 Mixed hyperlipidemia; R79.89 Other specified abnormal findings of blood chemistry; G43.109 Migraine with aura, not intractable, without status migrainosus; F17.200 Nicotine dependence, unspecified, uncomplicated

== ENCOUNTER → 2025-06-01 10:13 | Outpatient (BNVA) | payer OTHER, SELFPAY | PROVIDERS: PCP Internal Medicine; Visit Provider Internal Medicine | DX: M19.011 Primary osteoarthritis, right shoulder (principal); M25.50 Pain in unspecified joint; E78.2 Mixed hyperlipidemia; R79.89 Other specified abnormal findings of blood chemistry; G43.109 Migraine with aura, not intractable, without status migrainosus; E66.9 Obesity, unspecified; F17.200 Nicotine dependence, unspecified, uncomplicated | CPT/HCPCS: 96127 ==

== ENCOUNTER 2025-06-09 11:28 | Outpatient (AMB) | payer OTHER, SELFPAY ==
--- OUTSIDE RECORDS SUMMARY | 2025-06-07 10:10 | XMS_ITS | Encounter Summary ---
Author Organization [facility] Address [address] [place] [address] Phone Care Team Providers Care Computer Systems Manager Name Role Phone Pcp, Unknown Primary Care Provider Unavailabl e Reason for Visit * Reason Comments Blister Encounter Details Date Type Department Care Team (Late st Contact Info) Description 06/07/2025 10:10 AM EST Office Visit [facility] at [address] [address] Alem Hdz, DEVELOPMENT COACH [address] [place] [phone] Paulette Younger, DEVELOPMENT COACH [address] [place] [address] [email or web address] Viral illness (Primary Dx); Indigestion Social History Tobacco Use Types Packs/Day Years Used Date Smoking Tobacco: Never Assessed Education Answer Date Recorded Are you interested in more education? Not on sylvia e 06/07/2025 Are you concerned about learning? Not on file 06/07/2025 No 06/07/2025 No 06/07/2025 Digital Access Answer Date Recorded No 06/07/2025 No 06/07/2025 Reliable internet access at home? Not on file 06/07/2025 Device with a working camera? Not on file Comments Unknown Sex and Gender Information Value Date Recorded Sex Assigned at Not on file Legal Sex Female 5:15 PM EST Gender Identity Not on file Sexual Orientation Not on file documented as of this encounter Last Filed Vital Signs Vital Sign Reading Time Taken Comments Blood Pressure 128/90 06/07/2025 9:48 AM EST Pulse 91 06/07/2025 9:48 AM EST Temperature 37.1 C (98.8 F) 06/07/2025 9:48 AM EST Respiratory Rate 16 06/07/2025 9:48 AM EST Oxygen Saturation 96% 06/07/2025 9:48 AM EST Inhaled Oxygen Concentration - - Weight - - Height - - Body Mass Index - - documented in this encounter Progress Notes * Paulette Younger, DEVELOPMENT COACH - 06/07/2025 10:10 AM EST Images from the original note were not included. Subjective: Patient ID: Thao Orozco is a 55 y.o. female. Patient is a 55-year-old female who presents for evaluation of fever, blisters in her mouth, sore throat, body aches, and indigestion with intermittent nausea, and headache that started on Sunday. Ptreports taking a home Covid test yesterday that was negative. Patient denies shortness of breath, chest pain, rash, and any dizziness. Denies any abdominal pain or other GI symptoms. Tolerating p.o. intake well, although reports p.o. intake increases feelings of indigestion. Has tenderness in gums on left side of mouth and left neck. Voiding without concerns. No other concerns for this visit. Review of Systems Constitutional: Positive for fatigue and fever. Negative for activity change and appetite change. HENT: Positive for congestion, mouth sores, postnasal drip and sore throat. Negative for ear pain, sinus pressure, trouble swallowing and voice change. Respiratory: Positive for cough (Intermitent). Negative for chest tightness, shortness of breath and wheezing. Cardiovascular: Negative for chest pain. Gastrointestinal: Negative for abdominal pain, constipation, diarrhea, nausea and vomiting. Genitourinary: Negative for problems with urination. Neurological: Positive for headaches (intermitent, same as other headaches). Negative for dizziness. Skin: Negative for persistent rash. Musculoskeletal: Positive for myalgias and neck pain (left side). Vitals: 06/07/25 0948 BP: (!) 128/90 Pulse: 91 Resp: 16 Temp: 37.1 ??C (98.8 ??F) TempSrc: Oral SpO2: 96% Objective: Physical Exam Vitals and nursing note reviewed. Constitutional: General: She is not in acute distress. Appearance: Normal appearance. She is not ill-appearing, toxic-appearing or diaphoretic. HENT: Head: Normocephalic and atraumatic. Right Ear: Tympanic membrane, ear canal and external ear normal. There is no impacted cerumen. Left Ear: Tympanic membrane, ear canal and external ear normal. There is no impacted cerumen. Ears: Comments: Fluid behind TM, mildly erythematous. Non-bulging. Nose: Nose normal. No congestion. Mouth/Throat: Mouth: Mucous membranes are moist. Pharynx: Oropharynx is clear. No oropharyngeal exudate or posterior oropharyngeal erythema. Comments: One small red spot on roof of mouth, one on left side of throat. No exudate. Tonsils are normal size. Eyes: Extraocular Movements: Extraocular movements intact. Conjunctiva/sclera: Conjunctivae normal. Pupils: Pupils are equal, round, and reactive to light. Cardiovascular: Rate and Rhythm: Normal rate and regular rhythm. Pulses: Normal pulses. Heart sounds: Normal heart sounds. No murmur heard. No friction rub. No gallop. Pulmonary: Effort: Pulmonary effort is normal. No respiratory distress. Breath sounds: Normal breath sounds. No stridor. No wheezing, rhonchi or rales. Musculoskeletal: General: Normal range of motion. Cervical back: Neck supple. Tenderness (left side, anterior cervical.) present. Lymphadenopathy: Cervical: Cervical adenopathy present. Skin: General: Skin is warm and dry. Findings: No rash. Neurological: Mental Status: She is alert and oriented to person, place, and time. Psychiatric: Mood and Affect: Mood normal. Behavior: Behavior normal. Thought Content: Thought content normal. Judgment: Judgment normal. Results for orders placed or performed in visit on 06/07/25 POCT Group A Streptococcus, PCR Result Value Ref Range Strep A, PCR Not Detected Not Detected POCT SARS-CoV-2, Influenza A/B, RSV, PCR Result Value Ref Range SARS-Cov-2 PCR Negative Negative POC Influenza A Negative Negative POC Influenza B Negative Negative RSV PCR Negative Negative Procedure: Procedures Assessment/Plan: Diagnosis Plan 1. Viral illness 2. Indigestion Assessment and Plan: Patient is a 55-year-old female presents for evaluation of symptoms consistent with viral illness, symptom day 3. Rapid testing done today was negative. Patient is afebrile and normotensive in clinic. Exam was reassuring. Pt reports having indigestion that started along with all the other symptoms.12 lead EKG completed in clinic, NSR without ectopy, rate of 80. Suspicion for CA is low given the indigestion. Discomfort is non-radiating and not reproducible on palpation. No c/o shortness of breath, chest tightness or discomfort, or GI symptoms. Nausea is intermittent. Tolerating PO intake well. No evidence of pneumonia, sepsis, or there systemic complication at this time. Typical course of viral illness discussed. Red flag symptoms discussed. Patient can gargle with salt water and take honey to help with throat irritation. Can use saline nasal spray to help reduce congestion. Can take Tylenol or Motrin for mild pain or discomfort. Patient instructed to drink plenty of fluids and get adequate rest. Patient instructed to go to the ED for further evaluation if red flag symptoms develop including persistent or increased chest pain, shortness of breath, and fever. Patient instructed to follow-up with PCP as needed for routine or ongoing care. Pt instructed to seek reevaluation if symptoms persist beyond seven 7 despite conservative treatment. Pt verbalized understanding and is in agreement with plan. documented in this encounter Plan of Treatment Not on file documented as of this encounter Procedures Procedure Name Priority Date/Time Associated Diagnosis Comments POCT GROUP A STREPTOCOCCUS, PCR Routine 06/07/2025 10:18 AM EST Viral illness POCT SARS-COV-2, INFLUENZA A/B, RSV, PCR Routine 06/07/2025 10:17 AM EST Viral illness documented in this encounter Results * POCT Group A Streptococcus, PCR (06/07/2025 10:18 AM EST) Strep A, PCR Not Detected Not Detected 06/07/20 10:46 AM EST [employer] [facility] Swab (Throat) 06/07/2025 10: 18 AM EST 06/07/2025 10:46 AM EST us Alem Hdz DEVELOPMENT COACH LAB POCT DOCKED DEVICE UNSOLICTED RESULTS Final Result [facility] [address] [address], [facility] [phone] * POCT SARS-CoV-2, Influenza A/B, RSV, PCR (06/07/2025 10:17 AM EST) [facility] Signature SARS-Cov-2 PCR Negative Negative 06/07/2025 10:58 AM EST [facility] Influenza A Negative Negative 06/07/2025 10:58 AM EST [facility] Influenza B Negative Negative 06/07/2025 10:58 AM EST [facility] RSV PCR Negative Negative 06/07/2025 10:58 AM EST [facility] Swab (Anterior Nares) 06/07/2025 10:17 AM EST 06/07/2025 10:58 AM EST Alem Hdz DEVELOPMENT COACH LAB POCT DOCKED DEVICE UNSOLICTED RESULTS Final Result Performing Organization Address [facility] Co de Phone Number [facility] [address] [address], [facility] [phone] documented in this encounter Visit Diagnoses Diagnosis Viral illness- Primary Unspecified viral infection, in conditions classified elsewhere and of unspecified site Indigestion Dyspepsia and other specified disorders of function of stomach documented in this encounter Additional Health Concerns Infection Onset Date Last Indicated Resolved Time Resp-Risk 06/07/2025 06/07/2025 documented as of this encounter Care Teams Computer Systems Manager Relationship Specialty Start Date End Date Pcp, Unknown PCP - General 07/11/13 documented as of this encounter Additional Source Comments The information contained in this document represents components of the legal health record. It is not the complete legal health record.[facility]
--- NOTE | 2025-06-09 11:35 | A.OFFPC_ITS ---
Vital Signs 06/09/25 11:36 Height 5 ft 5 in Weight 186 lb 4 oz BMI 31.0 BP 108/72 Blood Pressure Location Lt brachial Position Sitting Respiration 18 Pulse 81 Pulse Source Pulse Oximeter Temp Source Temporal Artery Scan Pulse Oximetry (%) 98 Oxygen Delivery Method Room Air Intake Visit Reasons: Fever Invisible Braces Orthodontist Required: No Accompanied by: Self / Same As Patient Allergies No Known Allergies (No Known Allergies*) Allergy (Verified 06/09/25 11:36) Medication List - Last Reconciled 06/09/25 by Jack Sweeney MD atorvastatin (Lipitor) 10 mg PO BEDTIME 90 days [IMMUNE Support 1 tab PO .QD] multivitamin 1 tab PO DAILY ondansetron 4 mg PO Q8H PRN oxycodone-acetaminophen 5-325 mg (Percocet) 1 tab PO Q6H PRN 28 days topiramate 50 mg (2 x 25 mg) PO BEDTIME [WALKING BOOT (left foot) As directed] Tobacco use date assessed: 06/09/25 Dental Screening Dental Screen Date: 06/09/25 Did you have a dental visit in the last 12 months?: Yes Did you have a dental problem in the last 6 months where you did not have access to dental care?: No Was dental information given to patient?: Patient has dentist HPI HPI Comments History of Present Illness Details History of Present Illness The patient is a 55-year-old obese female presenting for an acute problem. Her symptoms began on Sunday with the onset of a low-grade fever, with a maximum temperature of 100.6??F, and flu-like body aches. Within 24 hours, she developed oral sores, including a red spot and blisters on the roof of her mouth and a canker sore on her tongue. On Sunday, she went to an urgent care center due to proliferating, painful mouth sores and indigestion-like chest pain upon swallowing. At urgent care, influenza, strep, and COVID-19 swabs were all negative, and an EKG was normal. Since then, her mouth sores have significantly worsened, and she has developed new-onset green, watery diarrhea, despite not eating due to oral pain. Her past medical history is significant for hypercholesterolemia, migraines, and right shoulder osteoarthritis. She is a current smoker and is in the lung cancer screening program, with her last CT scan in February 2025. Blood work from October showed macrocytosis with a normal blood count, and labs from April 2025 rev ealed elevated LFTs (not new) and elevated cholesterol. Her current medications include atorvastatin, ondansetron as needed, oxycodone for migraines, Topamax, a multivitamin, and an immune support supplement. She denies current use of Zyrtec, diclofenac gel, hydroxyzine, or nabumetone. Health Maintenance - Lung cancer screening: The patient par ticipates in a lung cancer screening program, with her last CT scan performed in February 2025. - Supplements: She takes a daily multivi tamin and an immune support supplement. Social History - Substance Use: The patient is a Played smoker. - Employment: She works nights at a [employer]. - Social Contacts: A person at her home has a cold. Results - Recent Urgent Care Testing: Swabs for influenza, strep, and COVID-19 were all negative. An EKG was normal. - Labs (October): Blood count was normal wit h macrocytosis noted. - Labs (April 29, 2025): Showed kari l electrolytes, renal function, and blood sugar, with elevated liver function tests (noted as chronic) and elevated cholesterol. - Imaging: Last lung cancer screening CT was in February 2025. [facility] Medical History History of malignant melanoma Nicotine dependence, cigarettes, uncomplicated Mixed hyperlipidemia Obesity (BMI 30-39.9) Rash Elevated LFTs Hypertriglyceridemia Normal colonoscopy (~11/21/19) Migraine Surgical History History of tonsillectomy History of melanoma excision History of colonoscopy (~11/21/19) History of D&C Family History Father No problems noted. Mother Hypertension Dementia Other Mental health problem Social History Housing: House Alcohol intake: current Alcohol intake frequency: holidays/special occasions only Patient Tobacco Use Status: Current someday Tobacco user Years Smoked: (onset 19yo, 1/2-1ppd x 35yrs, now 1/2ppd - 25PYH) e-Cigarette/Vaping Use: Never Used Second Hand Smoke Exposure: Yes service: No Current occupational status: employed Cognitive needs: No Hearing needs: No Vision needs: No Questionnaire Thrive Questionnaire Date Thrive assessed: 06/09/25 I am a: Patient What is your living situation today?: I have a steady place to live Within the past 12 months, did the food you bought not last and you didn't have the money to get more?: Never true Within the past 12 months, did you worry whether your food would run out before you got money to buy more?: Never true Do you have trouble paying for medicines?: No Do you have trouble getting transportation to medical appointments?: No Do you have trouble paying your heating and electricity bill?: No Do you have trouble taking care of your child, family member or friend?: No Do you have trouble with day-to-day activities such as bathing, preparing meals, shopping, managing finances, etc.?: No Are you currently unemployed and looking for a job?: No Are you interested in more education?: No Currently or been in a relationship where the following occur: No concerns reported THRIVE Score: 0 KARYN-7 AMB Questionnaire KARYN-7 Date KARYN - 7 assessed: 06/01/25 Source: Developed by Drs. Jabari Antonio, Barbara Lim, Parish Jeffrey and colleagues, with an educational richie from [employer]. Review of Systems Narrative Review of Systems - Constitutional: Reports a low-grade fever (up to 100.6??F) and body aches. - Head/ENT: Reports multiple painful sores on her tongue, gums, and the roof of her mouth. Reports uncomfortable lymph nodes. Denies ear pain. - Cardiovascular: Reports indigestion-like pain in the middle of her chest upon swallowing. Denies shortness of breath. - Respiratory: Denies cough or shortness of breath. - Gastrointestinal: Reports new onset of green, watery diarrhea. Reports inability to eat due to oral pain. - Skin: Denies any rash on her hands, feet, or elsewhere on her body. Physical exam (Primary Care) Vital Signs: Last Vital Signs Pulse 81 06/09/25 11:36 Resp 18 06/09/25 11:36 BP 108/72 06/09/25 11:36 Pulse Ox 98 06/09/25 11:36 Oxygen Delivery Method Room Air 06/09/25 11:36 BMI result Body Mass Index 31.0 Tobacco/Smoking Status: Tobacco use Status Tobacco use date assessed 06/09/25 06/09/25 11:41 Patient Tobacco Use Status Current someday Tobacco 06/09/25 11:41 e-Cigarette/Vaping Use Never Used 06/09/25 11:41 Thrive Assessment: Date of Thrive Assessment Date Thrive assessed 06/09/25 06/09/25 11:41 Currently or been in a relationship where the following occur: No concerns reported Narrative Physical Exam - Oropharynx: Multiple ulcerations are present on the tongue, gums, and throughout the oropharynx. The tonsillar fossa region appears erythematous. Some lesions have a white appearance. - Neck: Palpation of the neck reveals no tenderness in the lymph node regions. - Skin: Examination of the skin reveals no rash. Const General: alert; No acute distress Eyes Conjunctivae: conjunctivae normal Resp Auscultation: clear to auscultation bilaterally Cardio Rate: regular rate Rhythm: regular rhythm GI Inspection: Yes normal to inspection Extrem General: Yes normal to inspection and No edema Coding Level of Care Code Est Pt Level 3 (61306) Diagnoses Diarrhea R19.7 Oral aphthous ulcer K12.0 Assessment & Plan Assessment & Plan (1) Diarrhea: Code(s): R19.7 - Diarrhea, unspecified Category: Medical Plan: Stool testing requested (2) Oral aphthous ulcer: Code(s): K12.0 - Recurrent oral aphthae Category: Medical Plan: Patient is given a magic mouthwash, nystatin swish and swallow as well as started on antiviral valacyclovir. Plan Plan Patient was informed and verbally consented to the use of an ambient scribe for clinic note documentation during this visit. 1. Viral Syndrome With Oral Mucositis The patient's presentation with fever, myalgia, and progressive, painful oral ulcerations is consistent with a viral etiology, likely herpetic gingivostomati tis, especially given the negative flu, strep, and COVID-19 tests. A fungal infection is less likely as there are discrete ulcerations rather than a creamy discharge. The cause is unclear, raising concerns about a possible immunocompromised state given the severity of the outbreak. The plan is to treat symptomatically and with antiviral medication. An antiviral medication was prescribed to be taken twice daily for seven days. For pain control, a prescription for Magic Mouthwash containing lidocaine, Benadryl, and Maalox was provided to swish and spit. An antifungal swish and swallow was also prescribed. The patient was advised to discontinue painful salt water rinses. If the sores continue to proliferate after five days, a follow-up visit and further workup for an underlying immune issue will be necessary. A work note was provided as she is unable to work due to pain. 2. Diarrhea The patient has new-onset green, watery diarrhea associated with her viral illness. A stool test was ordered to evaluate for infectious etiologies. It was recommended she take probiotics, such as Culturelle or Florastor, to help manage the diarrhea. The patient was advised to maintain hydration with Gatorade and water. Discussion Notes I explained to the patient that her symptoms of fever, aches, and severe mouth sores are consistent with a viral infection. I discussed that while fungal infection was considered, her clinical presentation with distinct ulcerations makes it less likely. We discussed the concern that such a severe outbreak is unusual and often linked to a compromised immune system, though there is no known reason for this in her case. I outlined the treatment plan, which includes an antiviral medication, an antifungal medication, and a prescription for Magic Mouthwash to manage the severe oral pain. I advised her to stop using salt water rinses as they were increasing her pain. I also recommended probiotics for her diarrhea and ordered a stool test. Return precautions were given, advising her to call us if the sores continue to proliferate after five days, as a full workup for an immune deficiency would be warranted. I provided a note to excuse her from work due to the significant pain. Patient Instructions - You have been prescribed an antiviral medication to take twice a day for seven days. - For pain, use the prescribed Magic Mouthwash, which contains lidocaine, Benadryl, and Maalox. Swish it in your mouth to numb the sores. - You were also prescribed an antifungal swish and swallow medication. - Stop using salt water rinses, as this may increase your pain. - For the diarrhea, take a probiotic such as Culturelle or Florastor. - Please go to the lab to lemon picker a collection container and provide a stool sample for testing. - Stay hydrated by drinking plenty of fluids like water and Gatorade. - Your condition is likely viral and can be contagious. Practice good hygiene and throw away your toothbrush. - Do not return to work until your pain is better controlled. A work excuse has been provided. - Call our office if the sores continue to get worse or new ones keep appearing after five days of treatment. Orders: Orders CDiff Gene PCR Today R19.7 - Diarrhea, unspecified Leukocytes Stool Qualitative Today R19.7 - Diarrhea, unspecified Medications: New [MAgic mouthwash Lidocaine/maalox and benadryl] swish in the mouth and swallow 5 mL PO TID 150 mL 1RF 7 days K12.0 - Recurrent oral aphthae valacyclovir 1,000 mg PO BID 14 tabs 0RF K12.0 - Recurrent oral aphthae nystatin swish and swallow TID 5 mL PO TID 105 mL 0RF 7 days K12.0 - Recurrent oral aphthae
[2025-06-09 11:36] VITALS: BP 108/72; PULSE 81; RESP 18; O2SAT 98; BMI 31.0
--- OUTSIDE RECORDS SUMMARY | 2025-06-09 12:51 | XMS_ITS | Patient Health Record ---
Author Organization [facility] Address [address] [place] [address] Care Team Providers Care Vice President Of Compliance Name Role Phone Nicholas MACIAS, [place] Primary Care Provider Mack Matta Jr Unavailable Allergies Allergen (clinical drug ingredient) Drug/Non Drug Allergy documented on EMR Reaction Allergy Type Onset Date Status bees (uncoded) Unknown Allergy Activ e Reason For Referral No Information Medications Medication SIG (Take, Route, Frequency, Duration) Notes Start Date End Date Status oxyCODONE-Acetaminophen 5-325 MG Tablet (Schedule II Drug) TAKE 1 TABLET BY MOUTH EVERY 6 HOURS NEEDED FOR 7 DAYS Oral; Duration: 7 Active Topiramate 25 MG Tablet TAKE 2 TABLETS B Y MOUTH EVERY DAY AT BEDTIME Oral; Duration: 90 Active MiraLax (colon prep) 8.3 ounce ((238) grams mixed with Gatorade or Crystal Light orally begin at 5:00 p.m. the day before the procedure; Duration: 1 day 09/17/2019 Active Zofran 4 MG Tablet 1 tablet Orally Once a day/ as needed Active Centrum Silver Adult 50+ - Tablet as directed Orally Active Calcium 500 MG Tablet 1 tablet with meal s Orally Twice a day; Duration: 30 day(s) Active Airborne - Tablet Chewable as directed Orally Active Immunizations Vaccine Route Administration Date Status Comme nts Influenza Unknown 03/18/2019 Administered Social History Tobacco Use: Social History Observation Description Date Details (start date - stop date) Current Smoker NA - NA Social History Drugs/Alcohol: Social Info Question Answer Notes Alcohol Screen Did you have a drink containing alcohol in the past year? Yes How often did you have a drink containing alcohol in the past year? Monthly or less (1 point) How many drinks did you have on a typical day when you were drinking in the past year? 1 or 2 drinks (0 point) How often did you have 6 or more drinks on one occasion in the past year? Never (0 point) Points 1 Interpretation Negative Tobacco Use: Social Info Question Answer Notes Tobacco Use/Smoking Patient is a current smoker How often do you smoke cigarettes? every day How many cigarettes a day do you smoke? 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 Problems Problem Type SNOMED Code ICD Code Onset Dates Problem Status W/U Status Risk Notes Problem Blood in stool (330430955) Blood in stool (K92.1) Active confirmed Plan Of Treatment Future Test Test Name Order Date COLONOSCOPY 09/17/2019 Insurance Providers Payer Name Payer Address Payer Phone Subscriber Number Group Number Insured Name Patient Relationship to Insured Coverage Start Date Coverage End Date [facility] [address] [place] [phone] [id number] ANNABELLA LATHAM Self - patient is the insured Medical (General) History Medical History History ICD Code migraine headaches Surgical History Surgery Date(Month/Year) malignant melanoma in 1984 left inner th igh ( jesus) 1984 tonsillectomy and adenoidectomy 1991 hemorrhoidectomy 2009
--- OUTSIDE RECORDS SUMMARY | 2025-06-09 12:51 | XMS_ITS | Clinical Summary ---
Author Organization [facility] Address [address] [place] [address] Phone Care Team Providers Care Scalp Specialist Name Role Phone Pcp, Unknown Primary Care Provider Unavailabl e Allergies Active Allergy Reactions Criticality Noted Date Comments Bee Pollens 06/07/2025 Medications topiramate (TOPAMAX) 25 MG tablet Take by mouth. 09/19/2024 Active atorvastatin (LIPITOR) 10 MG tablet take 1 tablet by mouth everyday at bedtime 06/01/2025 Active Active Problems No known active problems Encounters Date Type Department Care Team Description 06/07/2025 10:10 AM EST Office Visit [facility] at [address] [address] Alem Hdz, Paulette Shepherd, NICOLE Viral illness (Primary Dx); Indigestion from Last 3 Months Social History Tobacco Use Types Packs/Day Years [...] on file Sexual Orientation Not on file Last Filed Vital Signs Vital Sign Reading Time Taken Comments Blood Pressure 128/90 06/07/2025 9:48 AM EST Pulse 91 06/07/2025 9:48 AM EST Temperature 37.1 C (98.8 F) 06/07/2025 9:48 AM EST Respiratory Rate 16 06/07/2025 9:48 AM EST Oxygen Saturation 96% 06/07/2025 9:48 AM EST Inhaled Oxygen Concentration - - Weight - - Height - - Body Mass Index - - Plan of Treatment Health Maintenance Due Date Last Done Comments Adult Td,Tdap Booster 1972 LIPID PANEL 1972 DEPRESSION SCREENING 1984 SMOKING Hx and SMOKELESS TOBACCO SCREENING 02/21/1985 HEPATITIS C SCREENING 02/21/1990 HIV ONE-TIME SCREENING (18-65 YEARS) 02/21/1990 PAP SMEAR 02/21/1993 MAMMOGRAM 2012 COLOGUARD 02/21/2017 COLONOSCOPY 02/21/2017 COLORECTAL CANCER SCREENING 02/21/2017 FIT TEST 02/21/2017 FOBT 02/21/2017 SIGMOIDOSCOPY 02/21/2017 VIRTUAL COLONOSCOPY 02/21/2017 PNEUMOCOCCAL VACCINES (50+ years) (1 of 1 - PCV) 02/21/2022 ZOSTER VACCINES (1 of 2) 02/21/2022 INFLUENZA VACCINE (#1) 2025 , 03/21/2023, 04/04/2022, Additional history exists COVID-19 VACCINE ( season) 2025 07/23/2020, 06/24/2020 RSV VACCINE (1 - 1-dose 75+ series) 02/21/2047 HEPATITIS A VACCINES Aged Out No long er eligible based on patient's age to complete this topic HIB VACCINES Aged Out No longer eligi ble based on patient's age to complete this topic MENINGOCOCCAL VACCINES (ACWY) Aged Out No longer eligible based on patient's age to complete this topic MENINGOCOCCAL VACCINES (B) Aged Out N o longer eligible based on patient's age to complete this topic Medical Devices Not on file Procedures Procedure Name Priority Date/Time Associated Diagnosis Comments POCT GROUP A STREPTOCOCCUS, PCR Routine 06/07/2025 10:18 AM EST Viral illness POCT SARS-COV-2, INFLUENZA A/B, RSV, PCR Routine 06/07/2025 10:17 AM EST Viral illness from Last 3 Months Results * POCT Group A Streptococcus, PCR (06/07/2025 10:18 AM EST) Strep A, PCR Not Detected Not Detected 06/07/20 10:46 AM EST [facility] Swab (Throat) 06/07/2025 10: 18 AM EST 06/07/2025 10:46 AM EST Alem Hdz [facility] TOPST[facility] POCT DOCKED DEVICE UNSOLICTED RESULTS Final Result [facility] [address] [address], [facility] [phone] * POCT SARS-CoV-2, Influenza A/B, RSV, PCR (06/07/2025 10:17 AM EST) Pathologist [facility] SARS-Cov-2 PCR Negative Negative 06/07/2025 10:58 AM EST [facility] Influenza A Negative Negative 06/07/2025 10:58 AM EST [facility] Influenza B Negative Negative 06/07/2025 10:58 AM EST [facility] RSV PCR Negative Negative 06/07/2025 10:58 AM EST [facility] Swab (Anterior Nares) 06/07/2025 10:17 AM EST 06/07/2025 10:58 AM EST Alem Hdz [facility] TOPST[facility] POCT DOCKED DEVICE UNSOLICTED RESULTS Final Result [facility] [address] [address], [facility] [phone] from Last 3 Months Additional Health Concerns Infection Onset Date Last Indicated Resp-Risk 06/07/2025 06/07/2025 Insurance [facility] [place] [facility] [place] [id number] Care Teams Scalp Specialist Relationship Specialty Start Date End Date Pcp, Unknown PCP - General 07/11/13 Additional Source Comments The information contained in this document represents components of the legal health record. It is not the complete legal health record.[facility]
== END 2025-06-09 12:32 | disposition home or self-care (01) ==
LOC: HO.HMCH 11:28
PROVIDERS: PCP Internal Medicine; Visit Provider Internal Medicine
DX: R19.7 Diarrhea, unspecified (principal); K12.0 Recurrent oral aphthae

== ENCOUNTER 2025-06-10 11:15 | Outpatient (REF) | payer OTHER, SELFPAY ==
--- OUTSIDE RECORDS SUMMARY | 2025-06-07 10:10 | XMS_ITS | Encounter Summary ---
Author Organization [facility] Address [address] [place] [phone] Phone Care Team Providers Care Developmental Services Worker Name Role Phone Pcp, Unknown Primary Care Provider Unavailabl e Reason for Visit * Reason Comments Blister Encounter Details Date Type Department Care Team (Late st Contact Info) Description 06/07/2025 10:10 AM EST Office Visit [facility] at [address] [address] Alem Hdz, WAFER FABRICATOR [address] [place] [phone] Paulette Younger, WAFER FABRICATOR [address] [place] [address] [email or web address] Viral illness (Primary Dx); Indigestion [...] this encounter Progress Notes * Paulette Younger, WAFER FABRICATOR - 06/07/2025 10:10 AM EST Images from [...] without ectopy, rate of 80. Suspicion for MD is low given the indigestion. Discomfort is [...] Detected Not Detected 06/07/20 10:46 AM EST [employer] [facility] Swab (Throat) 06/07/2025 10: 18 AM EST 06/07/2025 10:46 AM EST us Alem Hdz WAFER FABRICATOR LAB POCT DOCKED DEVICE UNSOLICTED RESULTS Final Result [facility] [address] [address], [facility] [phone] * POCT SARS-CoV-2, Influenza A/B, RSV, PCR (06/07/2025 10:17 AM EST) [facility] Signature SARS-Cov-2 PCR Negative Negative 06/07/2025 10:58 AM EST [facility] Influenza A Negative Negative 06/07/2025 10:58 AM EST [facility] Influenza B Negative Negative 06/07/2025 10:58 AM EST [facility] RSV PCR Negative Negative 06/07/2025 10:58 AM EST [facility] Swab (Anterior Nares) 06/07/2025 10:17 AM EST 06/07/2025 10:58 AM EST Alem Hdz WAFER FABRICATOR LAB POCT DOCKED DEVICE UNSOLICTED RESULTS Final Result Performing Organization Address [facility] Co de Phone Number [facility] [address] [address], [facility] [phone] documented in this encounter Visit Diagnoses Diagnosis Viral illness- Primary Unspecified viral infection, in conditions classified elsewhere and of unspecified site Indigestion Dyspepsia and other specified disorders of function of stomach documented in this encounter Additional Health Concerns Infection Onset Date Last Indicated Resolved Time Resp-Risk 06/07/2025 06/07/2025 documented as of this encounter Care Teams Developmental Services Worker Relationship Specialty Start Date End Date Pcp, Unknown PCP - General 07/11/13 documented as of this encounter Additional Source Comments The information contained in this document represents components of the legal health record. It is not the complete legal health record.[facility]
--- OUTSIDE RECORDS SUMMARY | 2025-06-10 11:19 | XMS_ITS | Clinical Summary ---
Author Organization [facility] Address [address] [place] [address] Phone Care Team Providers Care Pattern Ruler Name Role Phone Pcp, Unknown Primary Care [...] Description 06/07/2025 10:10 AM EST Office Visit [facility] at [address] [address] Alem Hdz, Paulette Shepherd, NICOLE Viral illness [...] AM EST [facility] Swab (Throat) 06/07/2025 10: 18 AM EST 06/07/2025 10:46 AM EST Alem Hdz [facility]GAR [facility] POCT DOCKED DEVICE UNSOLICTED RESULTS Final Result [facility] [address] [address], [facility] [phone] * POCT SARS-CoV-2, Influenza A/B, RSV, PCR (06/07/2025 10:17 AM EST) Pathologist [facility] SARS-Cov-2 PCR Negative Negative 06/07/2025 10:58 AM EST [facility] Influenza A Negative Negative 06/07/2025 10:58 AM EST [facility] Influenza B Negative Negative 06/07/2025 10:58 AM EST [facility] RSV PCR Negative Negative 06/07/2025 10:58 AM EST [facility] Swab (Anterior Nares) 06/07/2025 10:17 AM EST 06/07/2025 10:58 AM EST Alem Hdz SUGAR SAMPL[facility] POCT DOCKED DEVICE UNSOLICTED RESULTS Final Result [facility] [address] [address], [facility] [phone] from Last 3 Months Additional Health Concerns Infection Onset Date Last Indicated Resp-Risk 06/07/2025 06/07/[address] [facility] [place] [id number] Care Teams Pattern Ruler Relationship Specialty Start Date End Date Pcp, Unknown PCP - General 07/11/13 Additional Source Comments The information contained in this document represents components of the legal health record. It is not the complete legal health record.[facility]
--- OUTSIDE RECORDS SUMMARY | 2025-06-10 11:19 | XMS_ITS | Patient Health Record ---
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 Problems Problem Type SNOMED Code ICD Code Onset Dates Problem Status W/U Status Risk Notes Problem Blood in stool (753439403) Blood in stool (K92.1) Active confirmed Plan Of Treatment Future Test Test Name Order Date COLONOSCOPY 09/17/2019 Insurance Providers Payer Name Payer Address Payer Phone Subscriber Number Group Number Insured Name Patient Relationship to Insured Coverage Start Date Coverage End Date [facility] [address] [place] [phone] [id number] ANNABELLA LATHAM Self - patient is the insured Medical (General) History Medical History History ICD Code migraine headaches Surgical History Surgery Date(Month/Year) malignant melanoma in 1984 left inner th igh ( jesus) 1984 tonsillectomy and adenoidectomy 1991 hemorrhoidectomy 2009
[2025-06-10 12:16] LABS: CDiff Gene PCR NEGATIVE (Negative)
[2025-06-10 12:20] LABS: Leukocytes Stool Qualitative NEGATIVE (NEGATIVE)
== END 2025-06-10 11:16 | disposition home or self-care (01) ==
LOC: HO.LNP 11:15
PROVIDERS: Visit Provider Internal Medicine
DX: R19.7 Diarrhea, unspecified (principal)
CPT/HCPCS: 87493; 89055

== ENCOUNTER 2025-06-15 10:52 | Outpatient (AMB) | payer OTHER, SELFPAY ==
[2025-06-15 11:07] VITALS: BP 110/80; PULSE 87; TEMP 36; O2SAT 95; BMI 30.9
--- NOTE | 2025-06-15 11:07 | A.OFFPC_ITS ---
Vital Signs 3 06/15/25 11:07 Height 5 ft 5 in Weight 186 lb BMI 30.9 BP 110/80 Blood Pressure Location Lt brachial Position Sitting Pulse 87 Pulse Source Pulse Oximeter Temp 96.8 F Temp Source Temporal Artery Scan Pulse Oximetry (%) 95 Oxygen Flow Rate 95 Intake Visit Reasons: sores Rubber Liner Required: No Accompanied by: Spouse Allergies No Known Allergies (No Known Allergies*) Allergy (Verified 06/15/25 11:11) Medication List - Last Reconciled 06/15/25 by Anne Marie Choe PA-C atorvastatin (Lipitor) 10 mg PO BEDTIME 90 days [IMMUNE Support 1 tab PO .QD] [MAgic mouthwash Lidocaine/maalox and benadryl 5 mL PO TID 7 days] multivitamin 1 tab PO DAILY nystatin 5 mL PO TID 7 days ondansetron 4 mg PO Q8H PRN oxycodone-acetaminophen 5-325 mg (Percocet) 1 tab PO Q6H PRN 28 days Saccharomyces boulardii (Daily Probiotic (S. boulardii)) 250 mg PO BID topiramate 50 mg (2 x 25 mg) PO BEDTIME valacyclovir 1,000 mg PO BID [WALKING BOOT (left foot) As directed] Tobacco use date assessed: 06/09/25 Dental Screening Dental Screen Date: 06/09/25 HPI sores 2 HPI0 Details 55 year old female with past medical his tory of migraine, hypertriglyceridemia, obesity, nicotine use and apthous ulcers last seen 05/2025 coming in for acute problem.?At her last visit she was given valacyclovir and magic mouthwash for oral ulcers. Presenting for follow-up of severe oral ulcers. Her initial symptoms of body aches and fever have subsided, but she reports significant fatigue. Her primary complaint is persistent mouth sores, some of which have improved while others have worsened, particularly an ulcer on the roof of her mouth that bled this morning. The ulcers are very painful, making it difficult to eat or brush her teeth. She has tried several remedies, noting that salt water rinses and nystatin caused burning, and a lidocaine swish induced a gag reflex. She finds some relief from rinsing with a hydrogen peroxide and water mixture and using topical anesthetics like Anbesol or Oragel. She has two doses of valacyclovir remaining. Associated symptoms have included heartburn, which has since resolved, as well as stomach pain and diarrhea. The diarrhea has improved from liquid to a soft consistency. Her relevant past medical history includes a normal colonoscopy last year and a recent physical that identified high cholesterol but was otherwise unremarkable. A recent urgent care visit included a normal EKG, and a stool study for C. diff and leukocytes was negative. [facility] Medical History History of malignant melanoma Nicotine dependence, cigarettes, uncomplicated Mixed hyperlipidemia Obesity (BMI 30-39.9) Rash Elevated LFTs Hypertriglyceridemia Normal colonoscopy (~11/21/19) Migraine Surgical History History of tonsillectomy History of melanoma excision History of colonoscopy (~11/21/19) History of D&C Family History Father No problems noted. Mother Hypertension Dementia Other Mental health problem Social History Housing: House Alcohol intake: current Alcohol intake frequency: holidays/special occasions only Patient Tobacco Use Status: Current someday Tobacco user Years Smoked: (onset 19yo, 1/2-1ppd x 35yrs, now 1/2ppd - 25PYH) e-Cigarette/Vaping Use: Never Used Second Hand Smoke Exposure: Yes service: No Current occupational status: employed Cognitive needs: No Hearing needs: No Vision needs: No Questionnaire Thrive Questionnaire Date Thrive assessed: 11/03/24 I am a: Patient What is your living situation today?: I have a steady place to live Within the past 12 months, did the food you bought not last and you didn't have the money to get more?: Never true Within the past 12 months, did you worry whether your food would run out before you got money to buy more?: Never true Do you have trouble paying for medicines?: No Do you have trouble getting transportation to medical appointments?: No Do you have trouble paying your heating and electricity bill?: No Do you have trouble taking care of your child, family member or friend?: No Do you have trouble with day-to-day activities such as bathing, preparing meals, shopping, managing finances, etc.?: No Are you currently unemployed and looking for a job?: No Are you interested in more education?: No Currently or been in a relationship where the following occur: No concerns reported THRIVE Score: 0 KARYN-7 AMB Questionnaire KARYN-7 Date KARYN - 7 assessed: 06/01/25 Source: Developed by Drs. Jabari Antonio, Barbara Lim, Parish Jeffrey and colleagues, with an educational richie from [employer]. Review of Systems Const Denies body aches, Denies chills, Denies fatigue, Denies fever(s), Denies headache(s) and Reports lethargy Eyes Reports no additional complaints and Denies change in vision ENT Reports as per HPI, Denies dysphagia, Denies headache(s), Reports mouth lesions and Denies odynophagia Card Denies chest pain, Denies syncope, Denies lightheadedness, Denies palpitations and Denies dyspnea Resp Denies cough and Denies dyspnea GI Denies abdominal pain, Denies dysphagia, Denies fecal incontinence, Denies diarrhea, Reports loose stools, Denies nausea, Denies odynophagia and Denies vomiting Reports no additional complaints Musc Reports no additional complaints Skin/Breast Reports system reviewed and no additional complaints, except as documented Neuro Denies syncope and Denies headache(s) Endo Denies fatigue and Denies palpitations Physical exam (Primary Care) Vital Signs: Last Vital Signs Temp 96.8 F 06/15/25 11:07 Pulse 87 06/15/25 11:07 BP 110/80 06/15/25 11:07 Pulse Ox 95 06/15/25 11:07 Oxygen Flow Rate 95 06/15/25 11:07 BMI result Body Mass Index 30.9 Tobacco/Smoking Status: Tobacco use Status Tobacco use date assessed 06/09/25 06/15/25 11:11 Patient Tobacco Use Status Current someday Tobacco 06/15/25 11:11 e-Cigarette/Vaping Use Never Used 06/15/25 11:11 Thrive Assessment: Date of Thrive Assessment Date Thrive assessed 11/03/24 06/15/25 11:11 Currently or been in a relationship where the following occur: No concerns reported Const General: cooperative, healthy appearing, comfortable and no acute distress Orientation/consciousness: patient oriented x3 HENMT Other: Several aphthous ulcers on the oral mucosa of the upper and bottom lip Head: Yes normocephalic Ears: hearing grossly normal bilaterally General nose exam: Normal external nose present Teeth image: 2 1. aphthous ulcer Eyes General: appearance normal, both eyes and all related structures Conjunctivae: conjunctivae normal Neck Neck: Yes full ROM and Yes no lymphadenopathy Resp Effort & Inspection: normal respiratory effort Auscultation: clear to auscultation bilaterally, no crackles, no rales, no rhonchi and no wheezes Cardio Rate: regular rate Rhythm: regular rhythm Skin General skin exam: no rashes or lesions noted Neuro General: patient oriented x3 Gait exam (Neuro): Normal gait present Extrem General: Yes normal to inspection, Yes full ROM and No edema Psych Affect: normal affect Attitude: cooperative Insight: Good insight present (Psych) Judgement: Good judgement present (Psych) Coding Level of Care Code Est Pt Level 4 (68740) Diagnoses Oral aphthous ulcer K12.0 Diarrhea R19.7 Assessment & Plan Assessment & Plan (1) Oral aphthous ulcer: Code(s): K12.0 - Recurrent oral aphthae Category: Medical Plan: The patient presents with severe, extensive oral ulcerations of unknown etiology. The differential diagnosis is broad and includes autoimmune conditions such as Crohn's disease or Behcet's disease, immunocompromised states (e.g., HIV), and other infections. The plan is to initiate a comprehensive workup to investigate these possibilities, which includes ordering blood work for autoimmune and inflammatory markers, as well as testing for HIV and mononucleosis. A chest x- ray will also be obtained. A prednisone 10 mg taper will be prescribed to manage inflammation and pain. The patient can continue using topical anesthetics like Oragel for symptomatic relief. A biopsy may be necessary if the condition persists, though the appropriate specialty for this procedure is currently undetermined. A follow-up appointment is scheduled in one week to review results and reassess her condition. (2) Diarrhea: Code(s): R19.7 - Diarrhea, unspecified Category: Medical Plan: The patient reports diarrhea that has improved from liquid to soft stools. This is being considered as part of the systemic workup for her oral ulcers, with Crohn's disease being a possible underlying cause. Consider GI consultation will further address this symptom. Plan This note was constructed using voice recognition software. While every effort has been made to ensure accuracy and city administrator, still areas may have been included sometimes these areas may affect the content or meeting of the given symptoms. Total time spent caring for the patient today was 20 minutes. This includes time spent before the visit reviewing the chart, time spent during the visit, and time spent after the visit and documentation. Patient was informed and verbally consented to the use of an ambient scribe for clinic note documentation during this visit. Orders: Orders 2 TIFFANIE Reflex Titer and Pattern Today K12.0 - Recurrent oral aphthae Erythrocyte Sedimentation Rate Today K12.0 - Recurrent oral aphthae HIV Ab/Ag Today K12.0 - Recurrent oral aphthae HSV I and II,IHC Today K12.0 - Recurrent oral aphthae Complete Blood Count Auto Diff Today R19.7 - Diarrhea, unspecified, Z13.0 - Encounter for screening for diseases of the blood and blood-forming organs and certain disorders involving the immune mechanism UA CC w/rflx Micro + Cult Today Z13.9 - Encounter for screening, unspecified Monotest Today K12.0 - Recurrent oral aphthae, R13.10 - Dysphagia, unspecified C Reactive Protein Today K12.0 - Recurrent oral aphthae Comprehensive Met. Panel Today R19.7 - Diarrhea, unspecified, Z00.00 - Encounter for general adult medical examination without abnormal findings XR chest 2V Today F17.210 - Nicotine dependence, cigarettes, uncomplicated, R13.10 - Dysphagia, unspecified Creatine Kinase Total Today K12.0 - Recurrent oral aphthae Medications: New 2 prednisone Take 4 tablets on days 1-2, take 3 tablets on days 3-4, take 2 tablets on days 5-6, take 1 tablet on days 7-8. 10 mg PO DIRECTED 20 tabs 0RF Discontinued 2 nystatin swish and swallow TID Discontinued Reason: Patient no longer taking 5 mL PO TID 7 days 105 mL 0RF K12.0 - Recurrent oral aphthae
--- OUTSIDE RECORDS SUMMARY | 2025-06-15 12:33 | XMS_ITS | Patient Health Record ---
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 Problems Problem Type SNOMED Code ICD Code Onset Dates Problem Status W/U Status Risk Notes Problem Blood in stool (248326830) Blood in stool (K92.1) Active confirmed Plan Of Treatment Future Test Test Name Order Date COLONOSCOPY 09/17/2019 Insurance Providers Payer Name Payer Address Payer Phone Subscriber Number Group Number Insured Name Patient Relationship to Insured Coverage Start Date Coverage End Date [facility] [address] [place] [address] [id number] ANNABELLA LATHAM Self - patient is the insured Medical (General) History Medical History History ICD Code migraine headaches Surgical History Surgery Date(Month/Year) malignant melanoma in 1984 left inner th igh ( jesus) 1984 tonsillectomy and adenoidectomy 1991 hemorrhoidectomy 2009
--- OUTSIDE RECORDS SUMMARY | 2025-06-15 12:33 | XMS_ITS | Clinical Summary ---
Author Organization [facility] Address [address] [place] [id number] Phone Care Team Providers Care Contour Path Tape Mill Operator Name Role Phone Pcp, Unknown Primary Care [...] EST Office Visit [facility] at [address] [address] Alem Hdz, Paulette Shepherd, NICOLE Viral illness [...] AM EST [facility] Swab (Throat) 06/07/2025 10: 18 AM EST 06/07/2025 10:46 AM EST Alem Hdz TURBINE ATTENDANT LAB POCT DOCKED DEVICE UNSOLICTED RESULTS Final Result [facility] [address] [address], [facility] [phone] * POCT SARS-CoV-2, Influenza A/B, RSV, PCR (06/07/2025 10:17 AM EST) Pathologist [facility] SARS-Cov-2 PCR Negative Negative 06/07/2025 10:58 AM EST [facility] POC Influenza A Negative Negative 06/07/2025 10:58 AM EST [facility] POC Influenza B Negative Negative 06/07/2025 10:58 AM EST [facility] RSV PCR Negative Negative 06/07/2025 10:58 AM EST [facility] Swab (Anterior Nares) 06/07/2025 10:17 AM EST 06/07/2025 10:58 AM EST Alem Hdz TURBINE ATTENDANT LAB POCT DOCKED DEVICE UNSOLICTED RESULTS Final Result [facility] [address] [address], [facility] [phone] from Last 3 Months Additional Health Concerns Infection Onset Date Last Indicated Resp-Risk 06/07/2025 06/07/2025 Insurance [facility] [place] [place] [phone] Care Teams Contour Path Tape Mill Operator Relationship Specialty Start Date End Date Pcp, Unknown PCP - General 07/11/13 Additional Source Comments The information contained in this document represents components of the legal health record. It is not the complete legal health record.[facility]
== END 2025-06-15 11:57 | disposition home or self-care (01) ==
LOC: HO.HMCH 10:53
PROVIDERS: PCP Internal Medicine
DX: K12.0 Recurrent oral aphthae (principal); R19.7 Diarrhea, unspecified

== ENCOUNTER 2025-06-15 10:52 | Outpatient (REF) | payer OTHER, SELFPAY ==
--- NOTE | ~2025-06-15 | XR_ITS ---
EXAMINATION: XR CHEST 2 VIEWS HISTORY: R13.10 - Dysphagia, unspecified COMPARISON: There are no prior studies available for comparison. FINDINGS: PA and lateral views of the chest are submitted. There is linear scarring in the lingula. Lungs are otherwise clear. There is no pleural effusion, pneumothorax, or pulmonary vascular congestion. The heart is normal in size. The bones are intact. XR/XR chest 2V IMPRESSION: Lingular scarring. Electronically signed by: Jabari Kim MD 06/15/2025 12:26 PM [facility]DLE[facility]
[2025-06-15 12:36] LABS: MANUAL DIFF FLAG NO
[2025-06-15 13:08] LABS: Hematocrit 40.7 % (37.0-47.0); Hemoglobin 14.1 g/dl (12.0-16.0); Imm Gran Abs Auto 0.05 X10*3/uL (0.00-0.03); Imm Gran Pct Auto 0.7 % (0.0-0.4); Lymphocytes Absolute Auto 1.9 X10*3/uL (1.2-4.9); Mean Corpuscular HGB Conc 34.6 g/dl (31.0-35.0); Mean Corpuscular Hemoglobin 33.6 pg (27.0-33.0); Mean Corpuscular Volume 96.9 fL (80.0-98.0); NRBC Abs Auto 0.000 X10*3/uL (0.0-0.012); NRBC Pct Auto 0.0 /100WBC (0.0-0.2); Platelet Count 404 X10*3/uL (160-400); Red Blood Count 4.20 X10*6/uL (4.20-5.50); White Blood Count 6.7 X10*3/uL (4.8-10.8)
[2025-06-15 13:39] LABS: Alanine Aminotransferase 46 U/L (0-31); Albumin Level 4.2 g/dL (3.5-5.0); Alkaline Phosphatase 95 U/L (39-117); Anion Gap 12 (12-20); Aspartate Amino Transferase 34 U/L (5-31); Blood Urea Nitrogen 15 mg/dL (9-16); Calcium 9.4 mg/dL (8.4-10.2); Carbon Dioxide 27 mmol/L (22-29); Chloride 110 mmol/L (96-108); Estimated Glomerular Filt Rate > 60; Potassium 3.7 mmol/L (3.3-5.1); Sodium 145 mmol/L (135-145); Total Protein 6.9 g/dL (6.5-8.0)
[2025-06-15 13:45] LABS: Appearance Urine Clear; Glucose Urine UA Negative (Negative); PH 5.5 (5.0-9.0); Specific Gravity - Urine 1.025 (1.005-1.025); UMIC TRIGGER UACC YES
[2025-06-15 13:48] LABS: UACC Culture Trigger YES
[2025-06-16 08:06] LABS: HIV Num 1 0.06 S/CO (0.00-0.99)
[2025-06-16 13:08] LABS: Anti Nuclear Antibody Screen NEGATIVE (NEGATIVE)
== END 2025-06-15 10:53 | disposition home or self-care (01) ==
LOC: HO.LAB 10:52
PROVIDERS: PCP Internal Medicine
DX: Z00.00 Encounter for general adult medical examination without abnormal findings (principal); R13.10 Dysphagia, unspecified; K12.0 Recurrent oral aphthae; R19.7 Diarrhea, unspecified; G43.909 Migraine, unspecified, not intractable, without status migrainosus; F17.210 Nicotine dependence, cigarettes, uncomplicated; Z13.0 Encounter for screening for diseases of the blood and blood-forming organs and certain disorders involving the immune mechanism
CPT/HCPCS: 36415; 71046; 80053; 81001; 82550; 85025; 85652; 86038; 86140; 86308; 87086; 87389

== ENCOUNTER → 2025-06-15 12:04 | Outpatient (BNV) | payer OTHER, SELFPAY | PROVIDERS: PCP Internal Medicine; Visit Provider Radiology Diagnostic Radiology | DX: R13.10 Dysphagia, unspecified (principal) | CPT/HCPCS: 71046 ==